=== PATIENT | female | born 1950 | race Caucasian/White ===

== ENCOUNTER 2016-10-13 14:24 | Outpatient (CLI) | payer MEDICARE | END 2016-10-13 23:59 | disposition home or self-care (01) | LOC: WOU 14:24 | PROVIDERS: ATTEND Podiatrist Foot & Ankle Surgery | DX: S91.101A Unspecified open wound of right great toe without damage to nail, initial encounter (principal); X58.XXXA Exposure to other specified factors, initial encounter; Y93.E8 Activity, other personal hygiene; Y92.89 Other specified places as the place of occurrence of the external cause; L60.0 Ingrowing nail; S91.012A Laceration without foreign body, left ankle, initial encounter | CPT/HCPCS: 11730; A6402 ==

== ENCOUNTER 2016-12-16 10:10 | Outpatient (CLI) | payer MEDICARE | END 2016-12-16 23:59 | disposition home or self-care (01) | DX: M65.871 Other synovitis and tenosynovitis, right ankle and foot (principal); S90.111A Contusion of right great toe without damage to nail, initial encounter; W22.8XXA Striking against or struck by other objects, initial encounter; Y92.89 Other specified places as the place of occurrence of the external cause; K21.9 Gastro-esophageal reflux disease without esophagitis; Z88.6 Allergy status to analgesic agent; Z88.8 Allergy status to other drugs, medicaments and biological substances; R60.0 Localized edema ==

== ENCOUNTER 2016-12-21 11:27 | Outpatient (CLI) | payer MEDICARE | END 2016-12-21 23:59 | disposition home or self-care (01) | LOC: RAD 11:27 | PROVIDERS: ATTEND Podiatrist Foot & Ankle Surgery | DX: M19.071 Primary osteoarthritis, right ankle and foot (principal) | CPT/HCPCS: 73630-TC ==

== ENCOUNTER 2016-12-29 11:00 | Outpatient (CLI) | payer MEDICARE | END 2016-12-29 23:59 | disposition home or self-care (01) | LOC: WOU 11:00 | PROVIDERS: ATTEND Podiatrist Foot & Ankle Surgery | DX: M19.071 Primary osteoarthritis, right ankle and foot (principal); R60.0 Localized edema; R23.4 Changes in skin texture; N31.9 Neuromuscular dysfunction of bladder, unspecified; Z88.6 Allergy status to analgesic agent; Z88.2 Allergy status to sulfonamides; Z87.440 Personal history of urinary (tract) infections | CPT/HCPCS: A6197; G0463 ==

== ENCOUNTER 2017-03-05 12:20 | Outpatient (CLI) | payer MEDICARE ==
[2017-03-05] MEDS ORDERED: ETHYL CHLORIDE SPRAY 1 EA BOTTLE TP ONE (14:00)
[2017-03-05] MEDS ORDERED: DEXAMETHASONE SOD PHOSPHATE 4 MG/ML VIAL ONE (14:00)
[2017-03-05] MEDS ORDERED: DEXAMETHASONE SOD PHOSPHATE 4 MG/ML VIAL IV SCH (14:00)
== END 2017-03-05 23:59 | disposition home or self-care (01) ==
LOC: WOU 12:20
PROVIDERS: ATTEND Podiatrist Foot & Ankle Surgery
PROC: 3E0U33Z Introduction of Anti-inflammatory into Joints, Percutaneous Approach (ICD-10-PCS; principal; 2017-03-05)
PROC: 3E0U3NZ Introduction of Analgesics, Hypnotics, Sedatives into Joints, Percutaneous Approach (ICD-10-PCS; principal; 2017-03-05)
DX: M65.872 Other synovitis and tenosynovitis, left ankle and foot (principal); M25.562 Pain in left knee; M25.511 Pain in right shoulder; S93.402D Sprain of unspecified ligament of left ankle, subsequent encounter; X58.XXXD Exposure to other specified factors, subsequent encounter
CPT/HCPCS: 20600; 20605; A6402; J1100; J3490

== ENCOUNTER 2018-10-26 14:45 | Outpatient (CLI) | payer MEDICARE ==
[2018-10-26] MEDS ORDERED: DEXAMETHASONE SOD PHOSPHATE 4 MG/ML VIAL IJ ONE (15:30)
[2018-10-26] MEDS ORDERED: ETHYL CHLORIDE SPRAY 1 EA BOTTLE TP ONE (15:30)
== END 2018-10-26 23:59 | disposition home or self-care (01) ==
LOC: WOU 14:45
PROVIDERS: ATTEND Podiatrist Foot & Ankle Surgery
DX: M72.2 Plantar fascial fibromatosis (principal); G57.52 Tarsal tunnel syndrome, left lower limb; G89.4 Chronic pain syndrome; Z88.2 Allergy status to sulfonamides; Z88.8 Allergy status to other drugs, medicaments and biological substances
CPT/HCPCS: 20550; J1100; J3490

== ENCOUNTER 2018-11-02 14:20 | Outpatient (CLI) | payer MEDICARE ==
[2018-11-02] MEDS ORDERED: ETHYL CHLORIDE SPRAY 1 EA BOTTLE TP ONE (15:30)
[2018-11-02] MEDS ORDERED: DEXAMETHASONE SOD PHOSPHATE 4 MG/ML VIAL IJ ONE (15:30)
== END 2018-11-02 23:59 | disposition home or self-care (01) ==
LOC: WOU 14:20
PROVIDERS: ATTEND Podiatrist Foot & Ankle Surgery
DX: M65.872 Other synovitis and tenosynovitis, left ankle and foot (principal); G57.52 Tarsal tunnel syndrome, left lower limb; R60.0 Localized edema; G89.29 Other chronic pain
CPT/HCPCS: 20550; 82962; J1100

== ENCOUNTER 2019-01-02 23:42 | Emergency (ER) | payer MEDICARE ==
[~2019-01-02] VITALS: Ht 149.9 cm; Wt 68.9 kg
--- NOTE | 2019-01-02 23:48 | NUR ---
PT [id number] FROM HOME FOR L LEG/CALF PAIN X4DAYS. PT WAS SEEN 2 DAYS AGO AT [facility] FOR SAME L LEG PAIN. PT TOOK NORCO 10 AND FENTANYL 50MG DIRECTOR OF CATH LAB. PT ON MONITOR IN BED 3. WILL CONTINUE TO MONITOR.
[2019-01-03] MEDS ORDERED: HYDROMORPHONE INJ 2 MG/ML DISP.SYRIN IV ONE
[2019-01-03] MEDS ORDERED: IV NS 0.9% 500 ML BAG IV ONE
[2019-01-03 00:26] LABS: BASOPHILS % (AUTO) 0.9 % (0.0-2.0); EOSINOPHILS % (AUTO) 0.3 % (0.0-6.0); HEMATOCRIT 49 % (33-45); HEMOGLOBIN 16.6 g/dL (11.5-14.8); LYMPHOCYTES # (AUTO) 1.9 /CMM (0.8-4.8); LYMPHOCYTES % (AUTO) 33.8 % (20.0-44.0); MEAN CORPUSCULAR HGB CONC 34 g/dl (31.0-36.0); MEAN CORPUSCULAR VOLUME 92 fL (82-100); MONOCYTES # (AUTO) 0.5 /CMM (0.1-1.30); NEUTROPHILS # (AUTO) 3.1 /CMM (1.8-8.9); PLATELET COUNT (AUTO) 213 /CMM (150-450); RED BLOOD CELL COUNT(AUTO) 5.33 MIL/uL (4.0-5.2); WHITE BLOOD COUNT (AUTO) 5.6 K/uL (4.3-11.0)
[2019-01-03] MEDS ORDERED: HYDROMORPHONE 1 MG/1 ML DISP.SYRIN ONE (00:40)
[2019-01-03 00:43] LABS: CALCIUM, SERUM 9.7 mg/dL (8.5-10.1); CREATININE 0.8 mg/dL (0.6-1.3)
[2019-01-03 02:47] VITALS: BP 118/69
--- NOTE | 2019-01-03 02:54 | NUR ---
Patient is resting comfortably in bed with BROTHER AT BEDSIDE. VSS. PT IN PAIN AND REQUESTING MORE PAIN MEDICATION. MD NOTIFIED.
[2019-01-03] MEDS ORDERED: LORAZEPAM 1 MG TABLET ONE (02:55)
[2019-01-03] MEDS ORDERED: HYDROCODONE/APAP 10/325MG 1 EA TABLET ONE (02:55)
[2019-01-03] MEDS ORDERED: LORAZEPAM 1 MG TABLET PO ONE (03:00)
[2019-01-03] MEDS ORDERED: HYDROCODONE/APAP 10/325MG 1 EA TABLET PO ONE (03:00)
--- NOTE | 2019-01-03 03:13 | NUR ---
IV removed. Catheter intact and site benign. Pressure and 4x4 applied to site. No bleeding noted.
--- NOTE | 2019-01-03 03:27 | NUR ---
[facility] ETA [id number] TRIP #[id number]
--- NOTE | 2019-01-03 04:32 | NUR ---
Patient discharged to home in stable condition. Written and verbal after care instructions given. Patient verbalizes understanding of instruction. PT PICKED UP BY [facility].
== END 2019-01-03 04:35 | disposition home or self-care (01) ==
LOC: ER 23:44
DX: G89.29 Other chronic pain (principal); R06.02 Shortness of breath; R11.0 Nausea; F32.9 Major depressive disorder, single episode, unspecified; G25.81 Restless legs syndrome; Z93.2 Ileostomy status; Z93.3 Colostomy status; Z98.890 Other specified postprocedural states; Z88.1 Allergy status to other antibiotic agents; Z88.6 Allergy status to analgesic agent; Z88.2 Allergy status to sulfonamides
CPT/HCPCS: 36415; 73590; 80048; 85025; 96374; 99284; J1170; J7040

== ENCOUNTER 2019-02-26 19:55 | Inpatient (IN) | payer MEDICARE ==
[~2019-02-26] VITALS: Ht 144.8 cm; Wt 63.0 kg
--- NOTE | 2019-02-26 23:05 | NUR ---
GPS FORENSIC BALLISTICS EXPERT NOTE: ADMITTED THIS 69-Y/O, FEMALE, FROM [facility], ARRIVED ON THIS UNIT AT 2305 VIA GURNEY WITH 2 EMT'S FROM AMBULANCE. PATIENT ADMITTED ON 5150 HOLD FOR GD AND DTS. PER HOLD PT. IS DEPRESSED AND EXPRESSES THOUGHTS OF NOT WANTING TO LIVE ANYMORE. PT. NOT SHOWING EATING AND SLEEPING, HX OF RECENT FALLS. PT. SOBBING AND UNABLE TO MANAGE DAILY LIFE DUE TO DEPRESSION. UPON FACE TO FACE ASSESSMENT, PATIENT IS A&O X3, AWAKE, ON RA 95 %, LAYING IN BED, NO ACUTE DISTRESS NOTED. BREATHING IS UNLABORED WITH EQUAL RISE & FALL OF THE CHEST. PT. IS NOTED TO BEING DEPRESSED, QUIET, SAD, FLAT AFFECT, ISOLATIVE. NO SI/HI/AVH VERBALIZED AT THIS TIME. SKIN ASSESSMENT DONE, PICTURES TAKEN & PLACED IN THE CHART. PT. REFUSED ACCU CHECK, PT. STATED," I AM EXHAUSTED." ALSO PATIENT IS UNABLE TO SIGN ADMISSION CONSENT FORMS DUE TO RIGHT ARM WEAKNESS. PT'S RIGHTS HANDBOOK & PT. GUIDELINES BOOK GIVEN & DISCUSSED TO THE PATIENT. PT BELONGINGS WERE INVENTORIED & CHECKED FOR CONTRABAND. PT. IS UNDER THE PSYCHIATRIC CARE OF DR. TORRES, ORDERS OBTAINED & UNDER THE MEDICAL CARE OF DR. COHN. PT. EDUCATED TO THE USE OF CALL LINDSAY. BED ALARM ON. ENVIRONMENTAL SAFETY CHECK DONE. BED LOCKED & IN LOW POSITION. WILL CONTINUE TO MONITOR Q15 MINUTES FOR SAFETY & BEHAVIOR.
[2019-02-26 23:20] VITALS: BP 107/68
[2019-02-27] MEDS ORDERED: MAGNESIUM HYDROXIDE 30 ML UDC PO PRN (00:30)
[2019-02-27] MEDS ORDERED: BLOOD SUGAR DIAGNOSTIC 1 EACH STRIP IN ONE (00:30)
[2019-02-27] MEDS ORDERED: MAG HYDROX/AL HYDROX/SIMETH 30 ML UDC PO PRN (00:30)
[2019-02-27] MEDS ORDERED: ACETAMINOPHEN 325 MG TABLET PO PRN (00:30)
[2019-02-27] MEDS ORDERED: TRAZ-214 PO (01:43)
[2019-02-27] MEDS ORDERED: DIAZ10TA4 PO (01:43)
[2019-02-27] MEDS ORDERED: RABE20TA18 PO (01:43)
[2019-02-27] MEDS ORDERED: TURM500C9 PO (01:43)
[2019-02-27] MEDS ORDERED: OXYC-133 PO (01:43)
[2019-02-27] MEDS ORDERED: ATOR20TA PO (01:43)
[2019-02-27] MEDS ORDERED: FENTANYL TOP (01:43)
[2019-02-27] MEDS ORDERED: [UNRECOGNIZED DRUG - OTHER] PO (01:43)
[2019-02-27] MEDS ORDERED: FENO160T PO (01:43)
[2019-02-27] MEDS ORDERED: LEVO50TA8 PO (01:43)
[2019-02-27] MEDS ORDERED: BACL10TA PO (01:43)
[2019-02-27] MEDS: LORAZEPAM 1 MG TABLET PO PRN ×2 (03:40→17:23)
--- NOTE | 2019-02-27 06:30 | NUR ---
GPS-RN CALLED EPIC GROUP SPOKE WITH DR. SUKI VAZQUEZ RECON TO BE DONE BY MORNING ROUNDING DOCTOR. 06:15- LEFT VOICE MESSAGE TO ANNELIESE VERA REGARDING PT'S ADMISSION. WILL ENDORSE TO THE NEXT SHIFT FOR CONTINUITY OF CARE.
--- NOTE | 2019-02-27 06:36 | NUR ---
GPS-RN PATIENT REFUSED TO HAVE HER COLOSTOMY/STOMA SITE TO TAKE A PICTURE. PATIENT REQUESTED TO HAVE IT DONE AFTER SHOWER. WILL ENDORSE TO THE DAY SHIFT NURSE.
[2019-02-27 08:00] VITALS: BP 105/62
[2019-02-27] MEDS: LEVOTHYROXINE SODIUM 50 MCG TABLET PO SCH (08:25)
[2019-02-27] MEDS: PANTOPRAZOLE 40 MG TABLET.DR PO SCH (08:25)
[2019-02-27] MEDS: ATORVASTATIN 10 MG TABLET PO SCH (08:25)
[2019-02-27] MEDS: oxyCODONE/APAP (5/325 MG) 1 UDTAB TABLET PO PRN (08:26)
[2019-02-27] MEDS ORDERED: TURMERIC ROOT EXTRACT 1000 MG PO SCH (09:00)
[2019-02-27] MEDS ORDERED: LEVOMEFOLATE PO SCH (09:00)
[2019-02-27] MEDS ORDERED: RABEPRAZOLE SODIUM 40 MG PO SCH (09:00)
--- NOTE | 2019-02-27 15:14 | NUR ---
RN NOTE- DR PATEL PAGED REGARDING PTS FENTANYL 50 MCG PATCH AND ILEOSTOMY SELF CARE. PT HAS DONE HER OWN ILEOSTOMY CATH AND CARE FOR OVER FIFTEEN YEARS AND HAS SUPPLIES IN HER PT LOCKER. DR PATEL ORDERED FENTANYL 50 MCG FENTANAL PATCH Q72 HRS AND ILEOSTOMY CARE PRN .
--- NOTE | 2019-02-27 15:25 | NUR ---
RN NOTE- ABOVE ORDERS FOR ILEOSTOMY CARE REQUIRE BLOOMING MILL SUPERVISOR TO BE PRESENT.
--- NOTE | 2019-02-27 15:48 | NUR ---
SS GROUP NOTE: SW met with pt. at bedside to invite them to attend today's support group at 2:00pm regarding regarding recognizing positive aspects in their life what. Patient was lethargic and refused stating, "I'm tired, need sleep". SW encouraged patient to attend later but respected patient's self-determination.
[2019-02-27 16:00] VITALS: BP 100/55
--- NOTE | 2019-02-27 17:24 | NUR ---
RN NOTE- PT WITH CRYING AND ANXIOUSNESS. ATIVAN PRN GIVEN
[2019-02-27 20:55] VITALS: BP 111/70
[2019-02-27] MEDS: SERTRALINE HCL 50 MG TABLET PO SCH (21:12)
[2019-02-27] MEDS: TRAZODONE 50 MG TABLET PO SCH (21:13)
[2019-02-28] MEDS: LORAZEPAM 1 MG TABLET PO PRN ×2 (02:51→11:50)
[2019-02-28 07:09] LABS: BASOPHILS % (AUTO) 0.4 % (0.0-2.0); EOSINOPHILS % (AUTO) 1.2 % (0.0-6.0); HEMATOCRIT 36 % (33-45); HEMOGLOBIN 12.2 g/dL (11.5-14.8); LYMPHOCYTES # (AUTO) 1.7 /CMM (0.8-4.8); MEAN CORPUSCULAR HGB CONC 34 g/dl (31.0-36.0); MEAN CORPUSCULAR VOLUME 92 fL (82-100); MONOCYTES # (AUTO) 0.3 /CMM (0.1-1.30); MONOCYTES % (AUTO) 9.3 % (2.0-12.0); NEUTROPHILS # (AUTO) 1.4 /CMM (1.8-8.9); NEUTROPHILS % (AUTO) 41.1 % (43.0-81.0); PLATELET COUNT (AUTO) 176 /CMM (150-450); RED BLOOD CELL COUNT(AUTO) 3.87 MIL/uL (4.0-5.2); WHITE BLOOD COUNT (AUTO) 3.5 K/uL (4.3-11.0)
[2019-02-28 07:18] LABS: ALBUMIN 2.9 g/dL (3.4-5.0); BILIRUBIN,TOTAL 0.7 mg/dL (0.2-1.0); CALCIUM, SERUM 9.1 mg/dL (8.5-10.1); CREATININE 0.9 mg/dL (0.6-1.3); POTASSIUM 3.3 mmol/L (3.5-5.1)
[2019-02-28 07:19] LABS: CHOLESTEROL 127 mg/dL (<200); HDL CHOLESTEROL 40 mg/dL (40-60); LDL 62 mg/dL (0-99); TRIGLYCERIDES 152 mg/dL (30-150)
[2019-02-28 08:00] VITALS: BP 107/62
[2019-02-28] MEDS: Fenofibrate 160 MG PO SCH (08:45)
[2019-02-28] MEDS: LEVOTHYROXINE SODIUM 50 MCG TABLET PO SCH (08:45)
[2019-02-28] MEDS: PANTOPRAZOLE 40 MG TABLET.DR PO SCH (08:45)
[2019-02-28] MEDS: ATORVASTATIN 10 MG TABLET PO SCH (08:45)
[2019-02-28] MEDS: SERTRALINE HCL 50 MG TABLET PO SCH (08:45)
[2019-02-28] MEDS ORDERED: POTASSIUM CHLORIDE 20 MEQ TAB.PRT.SR PO ONE (09:30)
[2019-02-28] MEDS: FENTANYL TD PATCH (50 MCG/HR) 50 MCG/HR PATCH.TD72 TD SCH (10:05)
--- NOTE | 2019-02-28 13:03 | NUR ---
FAMILY CONTACT: SW contacted pts brother Young [phone] and left a voicemail for callback.
--- NOTE | 2019-02-28 13:03 | NUR ---
INITIAL DISCHARGE PLAN: Patient wishes to return back home [id number] [facility] [id number] . SW will help form a safe and proper discharge plan in collaboration with .
--- NOTE | 2019-02-28 15:42 | NUR ---
FAMILY CONTACT: SW received a call from pts brother Young [phone] who was requesting medical information, SW explained that discussing medical information was out of her scope of practice and transferred the call to pts nurse.
[2019-02-28 16:00] VITALS: BP 100/57
[2019-02-28 20:00] VITALS: BP_SYST 108; BP_SYST 120; BP_DIAS 56; BP_DIAS 90
[2019-02-28 20:14] VITALS: BP 120/61
--- NOTE | 2019-02-28 20:27 | NUR ---
GPS/RN NOTE: PATIENT MOVED FROM ROOM 21-B TO 217. PATIENT IS ON CONTACT ISOLATION FOR MRSA.
[2019-02-28] MEDS: MUPIROCIN OINT 2% 22 GM TUBE SCH (20:40)
[2019-02-28 21:04] VITALS: BP 108/56
[2019-02-28] MEDS: TRAZODONE 50 MG TABLET PO SCH (21:34)
[2019-02-28] MEDS: TEMAZEPAM 15 MG CAPSULE PO PRN (21:37)
--- NOTE | 2019-02-28 21:38 | NUR ---
GPS/RN NOTE: TEMAZEPAM 15 MG CAP PO GIVEN, C/O INSOMNIA.
--- NOTE | 2019-03-01 03:32 | NUR ---
GPS/RN NOTE: CT HEAD RESULT: THERE IS NO EVIDENCE OF INTRACRANIAL PATHOLOGY. ATROPHY.
--- NOTE | 2019-03-01 06:34 | NUR ---
GPS/RN NOTE: END OF SHIFT NOTE: SLEPT FOR 8 HOURS DURING THE NIGHT, NO ACUTE DISTRESS NOTED. CONTINUE ISOLATION FOR MRSA NARES, ON BACTROBAN OINTMENT. NEEDY, ANXIOUS, MED COMPLIANT, COOPERATIVE.
[2019-03-01 08:00] VITALS: BP 112/71
[2019-03-01] MEDS: MUPIROCIN OINT 2% 22 GM TUBE SCH ×2 (08:46→20:58)
[2019-03-01] MEDS: Fenofibrate 160 MG PO SCH (08:46)
[2019-03-01] MEDS: LEVOTHYROXINE SODIUM 50 MCG TABLET PO SCH (08:46)
[2019-03-01] MEDS: PANTOPRAZOLE 40 MG TABLET.DR PO SCH (08:46)
[2019-03-01] MEDS: SERTRALINE HCL 50 MG TABLET PO SCH (08:47)
[2019-03-01] MEDS: ATORVASTATIN 10 MG TABLET PO SCH (08:47)
[2019-03-01] MEDS: LORAZEPAM 1 MG TABLET PO PRN (09:07)
--- NOTE | 2019-03-01 13:00 | NUR ---
OUTSIDE PSYCHIATRIST CONTACT: SW received a call from pts psychiatrist Dr. Brent Shah Address: [address] [place] [phone] who stated that pt needs continued inpatient psych treatment and also informed SW that pt is gravely disabled and unable to care for herself at home. Per Dr. Shah he stated that pt has not been eating or sleeping or taking medication in the past weeks and was refusing treatment. Dr. Shah stated that once pt is stable for discharge that he wishes for SW to call him to schedule a follow up appointment.
--- NOTE | 2019-03-01 14:00 | NUR ---
FAMILY CONTACT: GEMMA received a call from pts brother/PAOLO Young [phone] who requested information regarding pts discharge plan. GEMMA informed him that pt has been placed on a 14 day hold and that discharged orders have not been placed by psychiatrist. Brother stated that pt has been trying to manipulate her way out of her psych hold but stated that pt is very ill and needs help. Brother stated that pt may need SNF placement as she is unable to care for herself at home and also stated that pt is a "liar" and should not be trusted. GEMMA will continue working with pts brother and to ensure a safe and proper discharge plan.
[2019-03-01 16:00] VITALS: BP 121/65
[2019-03-01 20:00] VITALS: BP 107/61
[2019-03-01] MEDS: TRAZODONE 50 MG TABLET PO SCH (21:00)
[2019-03-01 21:51] VITALS: BP 107/61
[2019-03-02 08:00] VITALS: BP 115/85
[2019-03-02] MEDS: ATORVASTATIN 10 MG TABLET PO SCH (09:06)
[2019-03-02] MEDS: SERTRALINE HCL 50 MG TABLET PO SCH (09:06)
[2019-03-02] MEDS: PANTOPRAZOLE 40 MG TABLET.DR PO SCH (09:06)
[2019-03-02] MEDS: LEVOTHYROXINE SODIUM 50 MCG TABLET PO SCH (09:06)
[2019-03-02] MEDS: Fenofibrate 160 MG PO SCH (09:09)
[2019-03-02] MEDS: MUPIROCIN OINT 2% 22 GM TUBE SCH ×2 (09:10→20:59)
[2019-03-02] MEDS: LORAZEPAM 1 MG TABLET PO PRN (11:33)
[2019-03-02 16:00] VITALS: BP 125/75
--- NOTE | 2019-03-02 18:00 | NUR ---
ms rn patient stays inside room most of the time, though compliant to her meds, patien encourage to participate in group activity.
[2019-03-02 19:49] LABS: APPEARANCE,URINE SL CLOUDY (CLEAR); BILIRUBIN,URINE NEGATIVE (NEGATIVE); BLOOD, URINE NEGATIVE Ery/uL (NEGATIVE); COLOR,URINE YELLOW (YELLOW); KETONES,URINE NEGATIVE (NEGATIVE); LEUKOCYTE ESTERASE ,URINE SMALL (NEGATIVE); NITRITE, URINE NEGATIVE (NEGATIVE); PROTEIN,URINE NEGATIVE (NEGATIVE); UGLUCOSE NEGATIVE (NEGATIVE); UROBILINOGEN,URINE 0.2 EU/dL (0.2)
[2019-03-02 20:48] VITALS: BP 101/46
[2019-03-02] MEDS: TRAZODONE 50 MG TABLET PO SCH (21:12)
[2019-03-02] MEDS: TEMAZEPAM 15 MG CAPSULE PO PRN (22:39)
[2019-03-02 23:04] VITALS: BP 105/66
[2019-03-03 08:00] VITALS: BP 100/55
[2019-03-03] MEDS: ATORVASTATIN 10 MG TABLET PO SCH (08:21)
[2019-03-03] MEDS: SERTRALINE HCL 50 MG TABLET PO SCH (08:21)
[2019-03-03] MEDS: PANTOPRAZOLE 40 MG TABLET.DR PO SCH (08:21)
[2019-03-03] MEDS: LEVOTHYROXINE SODIUM 50 MCG TABLET PO SCH (08:21)
[2019-03-03] MEDS: Fenofibrate 160 MG PO SCH (09:58)
[2019-03-03] MEDS: MUPIROCIN OINT 2% 22 GM TUBE SCH ×2 (09:58→21:43)
[2019-03-03] MEDS: FENTANYL TD PATCH (50 MCG/HR) 50 MCG/HR PATCH.TD72 TD SCH (10:17)
[2019-03-03] MEDS: oxyCODONE/APAP (5/325 MG) 1 UDTAB TABLET PO PRN ×2 (11:50→21:41)
[2019-03-03 16:00] VITALS: BP 114/66
--- NOTE | 2019-03-03 17:25 | NUR ---
GPS RN NOTE ILEOSTOMY CARE COMPLETED TODAY
[2019-03-03] MEDS: POLYETHYLENE GLYCOL 3350 17 GM POWD.PACK PO SCH (18:27)
[2019-03-03 20:22] VITALS: BP 105/57
[2019-03-03] MEDS: TRAZODONE 50 MG TABLET PO SCH (21:42)
[2019-03-03] MEDS: LORAZEPAM 1 MG TABLET PO PRN (21:53)
--- NOTE | 2019-03-03 21:58 | NUR ---
GPS RN NOTE: PATIENT REFUSED TRAZODONE 100MG, EXPLAINED THE RISK AND BENEFITS X 3 ATTEMPTS, PATIENT STATED THAT THERE IS A SIDE EFFECT ON HER THAT SHE CAN'T REMEMBER WHEN SHE TAKES TRAZODONE MORE THAN 50 MG THAT IS WHY SHE IS REFUSING IT. WILL CONTINUE TO MONITOR Q15 MINS FOR SAFETY
[2019-03-03] MEDS: TEMAZEPAM 15 MG CAPSULE PO PRN (23:01)
[2019-03-04] MEDS: oxyCODONE/APAP (5/325 MG) 1 UDTAB TABLET PO PRN ×2 (04:15→11:46)
[2019-03-04 08:00] VITALS: BP 110/63
--- NOTE | 2019-03-04 08:32 | NUR ---
opening pt walking around c/o of not feeling well with symptoms of diarrhea and states that she thinks her ileostomy iis infected further stating she is not feeling well.. paged and spoke with LAKEISHA Vernon orders written and she come to exam pt later pt informed of plan of care.
[2019-03-04] MEDS: Fenofibrate 160 MG PO SCH ×2 (09:00→19:15)
[2019-03-04 09:06] LABS: BASOPHILS % (AUTO) 0.6 % (0.0-2.0); EOSINOPHILS % (AUTO) 0.6 % (0.0-6.0); HEMATOCRIT 40 % (33-45); HEMOGLOBIN 13.4 g/dL (11.5-14.8); LYMPHOCYTES # (AUTO) 1.8 /CMM (0.8-4.8); LYMPHOCYTES % (AUTO) 31.3 % (20.0-44.0); MEAN CORPUSCULAR HGB CONC 34 g/dl (31.0-36.0); MEAN CORPUSCULAR VOLUME 90 fL (82-100); MONOCYTES # (AUTO) 0.6 /CMM (0.1-1.30); MONOCYTES % (AUTO) 9.6 % (2.0-12.0); NEUTROPHILS # (AUTO) 3.4 /CMM (1.8-8.9); NEUTROPHILS % (AUTO) 57.9 % (43.0-81.0); PLATELET COUNT (AUTO) 188 /CMM (150-450); RED BLOOD CELL COUNT(AUTO) 4.41 MIL/uL (4.0-5.2); WHITE BLOOD COUNT (AUTO) 5.9 K/uL (4.3-11.0)
[2019-03-04 09:18] LABS: MAGNESIUM 1.7 mg/dL (1.8-2.4)
[2019-03-04 09:33] LABS: ALBUMIN 3.4 g/dL (3.4-5.0); BILIRUBIN,TOTAL 0.9 mg/dL (0.2-1.0); CALCIUM, SERUM 9.5 mg/dL (8.5-10.1); POTASSIUM 3.2 mmol/L (3.5-5.1); TOTAL PROTEIN, SERUM 6.6 g/dL (6.4-8.2)
[2019-03-04] MEDS: POLYETHYLENE GLYCOL 3350 17 GM POWD.PACK PO SCH (09:45)
[2019-03-04] MEDS: MUPIROCIN OINT 2% 22 GM TUBE SCH ×2 (09:46→21:30)
[2019-03-04] MEDS: PANTOPRAZOLE 40 MG TABLET.DR PO SCH (09:46)
[2019-03-04] MEDS: SERTRALINE HCL 50 MG TABLET PO SCH (09:46)
[2019-03-04] MEDS: ATORVASTATIN 10 MG TABLET PO SCH (09:46)
[2019-03-04] MEDS: LEVOTHYROXINE SODIUM 50 MCG TABLET PO SCH (09:46)
--- NOTE | 2019-03-04 10:20 | NUR ---
LABS ARE RESULTED CALLED WITH LAKEISHA WHALEN AND DURAN [id number].
[2019-03-04] MEDS ORDERED: POTASSIUM CHLORIDE 20 MEQ TAB.PRT.SR PO ONE (10:30)
--- NOTE | 2019-03-04 11:47 | NUR ---
IRRIGATED STOMA FOR SMALL BROWN STOOL FLUSHED AND COVERED WITH DRESSING BANDAGE. PT GIVEN PAIN MEDICATION AFTERWARD.
--- NOTE | 2019-03-04 14:21 | NUR ---
urine sent to lab for processing. brother brought pt medications-Librax and Genfobrein. medications taken to pharmacy and added to medication reconciliation list.
[2019-03-04] MEDS ORDERED: MAGNESIUM OXIDE 400 MG TABLET PO ONE (14:30)
[2019-03-04] MEDS ORDERED: CRAN200C5 PO (14:52)
[2019-03-04 16:00] VITALS: BP 115/71
[2019-03-04] MEDS: LIBRAX PO SCH (17:18)
--- NOTE | 2019-03-04 17:42 | NUR ---
CLOSING PT KEPT SAFE ALL MEDICATIONS GIVEN ABDOMINAL DISCOMFORT ADDRESSED AND MEDICATIONS GIVEN WILL ENDORSE CARE TO PM SHIFT FOR CONTINUITY OF CARE
[2019-03-04] MEDS ORDERED: MISCELLANEOUS MED 1 EA EA XX ONE (18:00)
[2019-03-04 20:36] VITALS: BP 102/56
[2019-03-04] MEDS ORDERED: CIPROFLOXACIN HCL 250 MG TABLET PO SCH (21:00)
[2019-03-04] MEDS ORDERED: CIPROFLOXACIN HCL 500 MG TABLET PO SCH (21:53)
[2019-03-04] MEDS: TRAZODONE 50 MG TABLET PO SCH (22:00)
[2019-03-04] MEDS ORDERED: CIPROFLOXACIN HCL 500 MG TABLET PO ONE (22:00)
[2019-03-04] MEDS: LORAZEPAM 1 MG TABLET PO PRN (22:07)
--- NOTE | 2019-03-04 22:41 | NUR ---
GPS RN NOTE: PATIENT REFUSED TRAZODONE, EXPLAINED THE RISK AND BENEFITS X 3 ATTEMPTS, PATIENT STILL REFUSED. WILL CONTINUE TO MONITOR Q15 MINS FOR SAFETY
[2019-03-04] MEDS: TEMAZEPAM 15 MG CAPSULE PO PRN (23:19)
[2019-03-05] MEDS: oxyCODONE/APAP (5/325 MG) 1 UDTAB TABLET PO PRN (00:23)
--- NOTE | 2019-03-05 02:21 | NUR ---
gps rn note: Patient still c/o cramping pain in her ileostomy site and requesting antonella, patient took prn pain medication and but per patient still not effective. Notified SANITARY CHEMIST Denis Dias, per Denis berman has an interaction with zoloft that patient was taking. Explained to the patient and patient agreed and applied hot compress on the painful site. Will continue to monitor q15 mins for safety
--- NOTE | 2019-03-05 03:00 | NUR ---
GPS RN NOTE: PATIENT ASLEEP IN BED, ARAUSABLE TO VERBAL AND TACTILE STIMULI, NO SOB, NO ACUTE DISTRESS, BREATHING EVEN AND UNLABORED, NO S/S OF PAIN AND DISCOMFORT, PRN MEDS AND HOT COMPRESS APPLICATIONS FOR PAIN EFFECTIVE. WILL CONTINUE TO MONITOR Q15 MINS FOR SAFETY
[2019-03-05 08:00] VITALS: BP 116/72
[2019-03-05] MEDS: POLYETHYLENE GLYCOL 3350 17 GM POWD.PACK PO SCH ×2 (08:19→08:32)
[2019-03-05] MEDS: CIPROFLOXACIN HCL 500 MG TABLET PO SCH ×2 (08:19→20:28)
[2019-03-05] MEDS: LEVOTHYROXINE SODIUM 50 MCG TABLET PO SCH (08:19)
[2019-03-05] MEDS: PANTOPRAZOLE 40 MG TABLET.DR PO SCH (08:19)
[2019-03-05] MEDS: ATORVASTATIN 10 MG TABLET PO SCH (08:19)
[2019-03-05] MEDS: SERTRALINE HCL 50 MG TABLET PO SCH (08:19)
[2019-03-05] MEDS: MUPIROCIN OINT 2% 22 GM TUBE SCH ×2 (08:21→21:43)
[2019-03-05] MEDS: LIBRAX PO SCH ×3 (09:00→16:58)
[2019-03-05] MEDS: Fenofibrate 160 MG PO SCH (09:00)
--- NOTE | 2019-03-05 10:22 | NUR ---
GPS RN NOTE: Called pharmacy asking about fenofibrate and librax not found in cassette. Neither available. Librax from home bottle in 2017.
[2019-03-05] MEDS: LORAZEPAM 1 MG TABLET PO PRN ×2 (10:44→21:48)
[2019-03-05] MEDS ORDERED: ONDANSETRON HCL 4 MG/5 ML SOLUTION PO PRN (11:00)
[2019-03-05 16:00] VITALS: BP 125/87
[2019-03-05 20:19] VITALS: BP 105/50
[2019-03-05] MEDS: ELLURA PO SCH (20:23)
[2019-03-05] MEDS: TRAZODONE 50 MG TABLET PO SCH (22:00)
[2019-03-05] MEDS: TEMAZEPAM 15 MG CAPSULE PO PRN (22:59)
--- NOTE | 2019-03-05 23:06 | NUR ---
PT REFUSED TRAZODONE 100MG ORDERED, BUT TOOK ALL OTHER MEDS INCLUDING SLEEPING MEDS. WILL CONTINUE TO MONITOR
[2019-03-06] MEDS: oxyCODONE/APAP (5/325 MG) 1 UDTAB TABLET PO PRN ×3 (02:18→14:28)
[2019-03-06] MEDS ORDERED: PANTOPRAZOLE 40 MG TABLET.DR PO SCH (07:30)
[2019-03-06 08:00] VITALS: BP 120/69
[2019-03-06] MEDS: PANTOPRAZOLE 40 MG TABLET.DR PO SCH (08:09)
[2019-03-06] MEDS: LEVOTHYROXINE SODIUM 50 MCG TABLET PO SCH (08:09)
[2019-03-06] MEDS: MUPIROCIN OINT 2% 22 GM TUBE SCH ×2 (08:41→21:02)
[2019-03-06] MEDS: Fenofibrate 160 MG PO SCH (08:42)
[2019-03-06] MEDS: CIPROFLOXACIN HCL 500 MG TABLET PO SCH ×2 (08:42→21:04)
[2019-03-06] MEDS: ELLURA PO SCH (08:43)
[2019-03-06] MEDS: SERTRALINE HCL 50 MG TABLET PO SCH (08:44)
[2019-03-06] MEDS: ATORVASTATIN 10 MG TABLET PO SCH (08:44)
[2019-03-06] MEDS: LIBRAX PO SCH ×3 (08:52→16:40)
[2019-03-06] MEDS: POLYETHYLENE GLYCOL 3350 17 GM POWD.PACK PO SCH (08:52)
--- NOTE | 2019-03-06 09:41 | NUR ---
FAMILY CONTACT: SW received a call from pts brother/DPOA Young [phone] who stated that he wishes to attend pts PC HEARING on this present day. SW informed him that he is able to attend if pt agrees with this attendance. Brother agreed and stated that he was on this way to the unit. SW will inform landcare officer and advocate of brothers desire to attend the hearing.
--- NOTE | 2019-03-06 10:10 | NUR ---
FAMILY CONTACT: GEMMA met with pts brother Young [phone] on the unit on this present day and he provided SW with evidence stating that pt is unable to care for herself at home. Brother wishes for pt to be discharged to a SNF as she is unable to meet her ADL's on her own. Brother is aware that pt will refuse SNF placement but stated that he will collaborate with GEMMA and to convince pt to go to a SNF. GEMMA will continue working with brother and to ensure a place and proper discharge.
[2019-03-06] MEDS ORDERED: KEY,NONCONTROL,TO KEEP IN PYXI 1 EA MC ONE (10:13)
[2019-03-06] MEDS: FENTANYL TD PATCH (50 MCG/HR) 50 MCG/HR PATCH.TD72 TD SCH (10:25)
[2019-03-06 11:18] LABS: BASOPHILS % (AUTO) 0.6 % (0.0-2.0); EOSINOPHILS % (AUTO) 0.2 % (0.0-6.0); HEMATOCRIT 41 % (33-45); HEMOGLOBIN 13.8 g/dL (11.5-14.8); LYMPHOCYTES # (AUTO) 1.5 /CMM (0.8-4.8); LYMPHOCYTES % (AUTO) 33.3 % (20.0-44.0); MEAN CORPUSCULAR HGB CONC 34 g/dl (31.0-36.0); MEAN CORPUSCULAR VOLUME 91 fL (82-100); MONOCYTES # (AUTO) 0.4 /CMM (0.1-1.30); MONOCYTES % (AUTO) 9.9 % (2.0-12.0); NEUTROPHILS # (AUTO) 2.5 /CMM (1.8-8.9); PLATELET COUNT (AUTO) 185 /CMM (150-450); RED BLOOD CELL COUNT(AUTO) 4.53 MIL/uL (4.0-5.2); WHITE BLOOD COUNT (AUTO) 4.4 K/uL (4.3-11.0)
[2019-03-06 11:25] LABS: CALCIUM, SERUM 9.9 mg/dL (8.5-10.1); CREATININE 0.9 mg/dL (0.6-1.3); POTASSIUM 4.2 mmol/L (3.5-5.1)
--- NOTE | 2019-03-06 11:48 | NUR ---
SNF REFERRAL: SW faxed SNF referral to [facility] Address: [address] [place] [address] and [facility] Address: [address] [place] [address] for review.
--- NOTE | 2019-03-06 13:34 | NUR ---
SNF: SW received a call from Holley, fire coordinator at [facility] Address: [address], [place] [address] stating pt has been accepted to the facility.
--- NOTE | 2019-03-06 15:50 | NUR ---
GROUP NOTE: Pt unable to participate in group due to having MRSA and being in isolation.
[2019-03-06 16:00] VITALS: BP 123/71
[2019-03-06] MEDS: LORAZEPAM 1 MG TABLET PO PRN (17:50)
--- NOTE | 2019-03-06 17:50 | NUR ---
RN NOTE: PT C/O INCREASED ANXIETY. MEDICATED WITH ATIVAN 1MG PO.
--- NOTE | 2019-03-06 19:27 | NUR ---
GPS/RN OPENING NOTES RECEIVED PATIENT IN BED, AWAKE, RESTING COMFORTABLY IN BED, CAN VERBALIZE NEEDS AND REPORTED WOULD LIKE TO TAKE MEDICATIONS AT A LATER TIME. RECEIVED REPORT FROM AM RN FOR SULTANA. PATIENT CT OF ABDOMEN DONE PER MD ORDER, ON ANTIBIOTIC PO THERAPY WILL MONITOR ANY CHANGES.
[2019-03-06 19:43] VITALS: BP 117/62
[2019-03-06 20:34] VITALS: BP 117/67
[2019-03-06] MEDS: TRAZODONE 50 MG TABLET PO SCH (21:04)
[2019-03-07] MEDS: LEVOTHYROXINE SODIUM 50 MCG TABLET PO SCH (07:44)
[2019-03-07] MEDS: PANTOPRAZOLE 40 MG TABLET.DR PO SCH (07:44)
[2019-03-07 08:00] VITALS: BP 97/64
[2019-03-07] MEDS: CIPROFLOXACIN HCL 500 MG TABLET PO SCH ×2 (08:45→21:17)
[2019-03-07] MEDS: MUPIROCIN OINT 2% 22 GM TUBE SCH ×2 (08:45→21:16)
[2019-03-07] MEDS: SERTRALINE HCL 50 MG TABLET PO SCH (08:45)
[2019-03-07] MEDS: ATORVASTATIN 10 MG TABLET PO SCH (08:46)
[2019-03-07] MEDS: ELLURA PO SCH (08:46)
[2019-03-07] MEDS: Fenofibrate 160 MG PO SCH (08:47)
[2019-03-07] MEDS: LIBRAX PO SCH ×3 (08:47→16:39)
[2019-03-07] MEDS: POLYETHYLENE GLYCOL 3350 17 GM POWD.PACK PO SCH (08:48)
--- NOTE | 2019-03-07 14:00 | NUR ---
RN NOTE: PT TOOK SHOWER WITH NICU RN. REPORTED LOSING FENTANYL 50 MCG PATCH WHILE IN THE SHOWER. BODY, CLOTHING AND TOWELS SEARCHED. UNABLE TO LOCATE FENTANYL PATCH JUAN SANCHEZ INSPECTOR PUBLICATIONS NOTIFIED.
[2019-03-07] MEDS: oxyCODONE/APAP (5/325 MG) 1 UDTAB TABLET PO PRN (14:52)
--- NOTE | 2019-03-07 14:53 | NUR ---
RN NOTE: PT C/O 11/12 UPPER ABDOMINAL PAIN AFTER SHOWER. MEDICATE WITH OXYCODONE PRN.
[2019-03-07 16:00] VITALS: BP 116/65
--- NOTE | 2019-03-07 16:22 | NUR ---
Group Note: SW encouraged pt to attend group therapy on 03/07/19 at 12pm discussing discharge planning but the pt is unable to participate in group at this time due the pt being on isolation for MRSA. GEMMA discussed with the pt that the recommendation is for the pt to be discharged to a SNF and the pt stated that she refuses that option and that she will return to her home.
--- NOTE | 2019-03-07 18:50 | NUR ---
RN NOTE: CALL TO JUAN SANCHEZ NP FOR ORDER FOR ONE TIME FENTANYL 50 MCG PATCH TO REPLACE LOST PATCH AND CIPRO 500MG BID FOR CHOLITIS.
[2019-03-07] MEDS ORDERED: FENTANYL TD PATCH (50 MCG/HR) 50 MCG/HR PATCH.TD72 TD SCH ×2 (19:00→20:00)
[2019-03-07] MEDS: LORAZEPAM 1 MG TABLET PO PRN (19:03)
--- NOTE | 2019-03-07 19:04 | NUR ---
RN NOTE: PT C/O INCREASE ANXIETY. MED WITH ATIVAN 1MG PO
[2019-03-07 20:02] VITALS: BP 113/64
[2019-03-07] MEDS ORDERED: CIPROFLOXACIN HCL 250 MG TABLET PO SCH (21:00)
[2019-03-07] MEDS: TRAZODONE 50 MG TABLET PO SCH (22:00)
[2019-03-07] MEDS: TEMAZEPAM 15 MG CAPSULE PO PRN (23:03)
[2019-03-08] MEDS: oxyCODONE/APAP (5/325 MG) 1 UDTAB TABLET PO PRN ×2 (01:31→10:48)
[2019-03-08] MEDS: PANTOPRAZOLE 40 MG TABLET.DR PO SCH (07:53)
[2019-03-08] MEDS: LEVOTHYROXINE SODIUM 50 MCG TABLET PO SCH (07:53)
[2019-03-08 08:00] VITALS: BP 102/70
--- NOTE | 2019-03-08 08:43 | NUR ---
FAMILY CONTACT: SW received a call from pts brother Young [phone] and discussed discharge to SNF. SW informed brother that pt will be discharged on 03/09/19 to [facility] ([facility]) [address] [place] [id number] . Brother agrees with discharge plan.
[2019-03-08] MEDS: LIBRAX PO SCH ×3 (09:00→16:05)
[2019-03-08] MEDS: ATORVASTATIN 10 MG TABLET PO SCH (09:02)
[2019-03-08] MEDS: POLYETHYLENE GLYCOL 3350 17 GM POWD.PACK PO SCH (09:02)
[2019-03-08] MEDS: CIPROFLOXACIN HCL 500 MG TABLET PO SCH ×2 (09:02→21:15)
[2019-03-08] MEDS: SERTRALINE HCL 50 MG TABLET PO SCH (09:02)
[2019-03-08] MEDS: MUPIROCIN OINT 2% 22 GM TUBE SCH ×2 (09:02→21:00)
[2019-03-08] MEDS: Fenofibrate 160 MG PO SCH (09:02)
[2019-03-08] MEDS: ELLURA PO SCH (09:03)
[2019-03-08] MEDS: LORAZEPAM 1 MG TABLET PO PRN (10:48)
--- NOTE | 2019-03-08 11:01 | NUR ---
INDIVIDUAL SESSION: GEMMA discussed pts discharge plan with pt on this present day. SW informed pt that she will be discharged tomorrow 03/09/19 to [facility] as she cannot be discharged home due to her inability to properly care for herself and unable to meet her ADL's. Pt denied and stated that she is able to care for herself and SW explained that the reason she was hospitalized was because she was not feeding herself, bathing, and taking medications. SW also explained that pts outside psychiatrist and brother have contacted SW to inform SW that pt is not able to care for herself and that her safety is at risk and needs SNF placement. SW explained that discharging pt home is not a safe discharge from the hospital. SW stated that she will coordinate pts discharge to a SNF for tomorrow via ambulance. Pt refused to continue speaking with SW and asked SW to leave the room.
--- NOTE | 2019-03-08 11:14 | NUR ---
OUTSIDE PSYCHIATRIST CONTACT: SW contacted pts psychiatrist Dr. Brent Shah Address: [address] [place] [phone] and left a voicemail informing him pt will be discharged 03/09/19 to [facility].
[2019-03-08 16:00] VITALS: BP 105/76
[2019-03-08 20:31] VITALS: BP 90/48
[2019-03-08] MEDS: NYSTATIN (PYXIS) 500,000 UNIT/5 ML ORAL.SUSP PO SCH (21:15)
[2019-03-08] MEDS: TRAZODONE 50 MG TABLET PO SCH (22:00)
[2019-03-09] MEDS: TEMAZEPAM 15 MG CAPSULE PO PRN (00:07)
[2019-03-09] MEDS: oxyCODONE/APAP (5/325 MG) 1 UDTAB TABLET PO PRN (06:37)
[2019-03-09 08:00] VITALS: BP 109/61
[2019-03-09] MEDS: POLYETHYLENE GLYCOL 3350 17 GM POWD.PACK PO SCH (08:44)
[2019-03-09] MEDS: Fenofibrate 160 MG PO SCH (08:45)
[2019-03-09] MEDS: PANTOPRAZOLE 40 MG TABLET.DR PO SCH (08:45)
[2019-03-09] MEDS: SERTRALINE HCL 50 MG TABLET PO SCH (08:45)
[2019-03-09] MEDS: LEVOTHYROXINE SODIUM 50 MCG TABLET PO SCH (08:45)
[2019-03-09] MEDS: NYSTATIN (PYXIS) 500,000 UNIT/5 ML ORAL.SUSP PO SCH ×2 (08:45→13:02)
[2019-03-09] MEDS: ATORVASTATIN 10 MG TABLET PO SCH (08:45)
[2019-03-09] MEDS: CIPROFLOXACIN HCL 500 MG TABLET PO SCH (08:46)
[2019-03-09] MEDS: MUPIROCIN OINT 2% 22 GM TUBE SCH (08:48)
[2019-03-09] MEDS: ELLURA PO SCH (08:49)
[2019-03-09] MEDS: LIBRAX PO SCH ×2 (09:00→13:00)
--- NOTE | 2019-03-09 10:33 | NUR ---
DISCHARGE NOTE: Pt will be discharged at 1:00pm via [facility] ([facility]) [address] [facility] [id number] . Pt's brother Young [phone] has been notified and agrees with discharge plan. Pts mood is labile with congruent affect. Pt denied suicidal/homicidal ideation and denied visual/auditory hallucinations. Pt will be under the care of Psychiatrist: Dr. Cortes Address: [address] [place] [address] and Gamemaster: Dr Evans Address: [address] [place] [address] . The multidisciplinary exit care form was done, printed, signed, and given to the patient.
--- NOTE | 2019-03-09 13:51 | NUR ---
DIRECTOR PRISON NOTE: PATIENT IS A 69 YEAR OLD FEMALE DISCHARGED TO [facility] ([facility]) [address] [facility] [address] . PATIENT IS IN STABLE CONDITION. VSS. NO ACUTE DISTRESS NOTED. NO COMPLAINTS. COMPLIANT WITH MEDICATION MANAGEMENT. COOPERATIVE WITH PLAN OF CARE. PSYCHIATRIC TREATMENT PLANS MET. MEDICAL TREATMENT PLANS DEFERRED FOR CONTINUAL MONITORING. DENIES SI/HI VAH AT THE TIME OF DISCHARGE. PATIENT REFUSED SKIN CHECK. EDUCATED PATIENT ABOUT AFTERCARE WITH COPY PROVIDED. RETURNED PERSONAL BELONGINGS TO PATIENT. MEDICATIONS RECONCILED WITH DR TORRES AND DANIEL, CRISTINE ALONG WITH PSYCHIATRIC DISCHARGE ORDERS. DISCHARGE PAPERWORK SIGNED. FOR FOLLOW UP WITH PSYCHIATRIST DR GARIBAY [address] [facility] [address] [address] RODRIGUEZ [address] [facility] [phone] WITHIN 1 WEEK. PATIENT LEFT THE [facility] VIA TRANSPORTATION AT 1330.
== END 2019-03-09 13:30 | DRG 885 ==
LOC: GPS 23:00
PROVIDERS: ADMIT Psychiatry & Neurology Psychiatry; ATTEND Hospitalist
DX: F33.9 Major depressive disorder, recurrent, unspecified (principal); R45.851 Suicidal ideations; E44.1 Mild protein-calorie malnutrition; F41.9 Anxiety disorder, unspecified; G89.29 Other chronic pain; M79.7 Fibromyalgia; N31.9 Neuromuscular dysfunction of bladder, unspecified; Z88.2 Allergy status to sulfonamides; E03.9 Hypothyroidism, unspecified; E78.5 Hyperlipidemia, unspecified; E87.6 Hypokalemia; R29.6 Repeated falls; E88.09 Other disorders of plasma-protein metabolism, not elsewhere classified; Z68.30 Body mass index [BMI] 30.0-30.9, adult
CPT/HCPCS: 36415; 70450-TC; 80048-TC; 80053-TC; 80061-TC; 81000-TC; 83735-TC; 84100-TC; 85025-TC; 87081-TC; 97116-TC; 97530-TC; Q0162

== ENCOUNTER 2019-09-23 10:17 | Inpatient (IN) | payer MEDICARE ==
[~2019-09-23] VITALS: Ht 165.1 cm; Wt 66.2 kg
[~2019-09-23 10:17] MED LIST: ATOR20TA PO; BACL10TA PO; CRAN200C5 PO; DIAZ10TA4 PO; FENO160T PO; FENTANYL TOP; LEVO50TA8 PO; OXYC-133 PO; RABE20TA18 PO; TRAZ-257 PO; TURM500C9 PO; [UNRECOGNIZED DRUG - OTHER] PO
--- NOTE | 2019-09-23 10:20 | NUR ---
PT BIBA RA 102 "neighbors called was found on the floor" PT IS AAOX3, NOT IN RESPIRATORY DISTRESS, HOOKED TO APPARATUS REPAIR MECHANIC, KEPT RESTED AND COMFORTABLE, WILL CONTINUE TO MONITOR.
--- NOTE | 2019-09-23 10:35 | NUR ---
PT SEEN AND EXAMINED BY .
--- NOTE | 2019-09-23 10:40 | NUR ---
IV LINE ESTABLISHED.
[2019-09-23] MEDS ORDERED: IV NS 0.9% 1,000 ML BAG IV ONE (11:00)
[2019-09-23 11:17] LABS: BASOPHILS % (AUTO) 0.3 % (0.0-2.0); EOSINOPHILS % (AUTO) 0.2 % (0.0-6.0); HEMATOCRIT 43 % (33-45); HEMOGLOBIN 13.8 g/dL (11.5-14.8); LYMPHOCYTES % (AUTO) 18.1 % (20.0-44.0); MEAN CORPUSCULAR HGB CONC 32 g/dl (31.0-36.0); MEAN CORPUSCULAR VOLUME 91 fL (82-100); MONOCYTES # (AUTO) 0.3 /CMM (0.1-1.30); MONOCYTES % (AUTO) 6.3 % (2.0-12.0); NEUTROPHILS % (AUTO) 75.1 % (43.0-81.0); PLATELET COUNT (AUTO) 151 /CMM (150-450); RED BLOOD CELL COUNT(AUTO) 4.75 MIL/uL (4.0-5.2); WHITE BLOOD COUNT (AUTO) 5.3 K/uL (4.3-11.0)
[2019-09-23 11:26] LABS: CALCIUM, SERUM 9.6 mg/dL (8.5-10.1); CARBON DIOXIDE 25 mmol/L (21-32); CHLORIDE 108 mmol/L (98-107); CREATININE 1.1 mg/dL (0.6-1.3); GLUCOSE 84 mg/dL (74-106); POTASSIUM 3.8 mmol/L (3.5-5.1); SODIUM SERUM 142 mmol/L (136-145); UREA NITROGEN, BLOOD 18 mg/dL (7-18)
--- NOTE | 2019-09-23 11:31 | NUR ---
CLAY ARTIST AT BEDSIDE FOR XRAY.
--- NOTE | 2019-09-23 11:35 | NUR ---
URINE SPECIMEN COLLECTED AND SENT TO LAB.
[2019-09-23] MEDS ORDERED: ESTR1PAT25 TD (11:44)
[2019-09-23] MEDS ORDERED: HYDR25TA4 PO (11:44)
[2019-09-23 11:45] LABS: APPEARANCE,URINE Clear (CLEAR); BILIRUBIN,URINE SMALL (NEGATIVE); BLOOD, URINE Trace-lysed Ery/uL (NEGATIVE); COLOR,URINE Yellow (YELLOW); KETONES,URINE Trace (NEGATIVE); LEUKOCYTE ESTERASE ,URINE Negative (NEGATIVE); NITRITE, URINE Negative (NEGATIVE); PROTEIN,URINE Negative (NEGATIVE); UGLUCOSE Negative (NEGATIVE); UROBILINOGEN,URINE 0.2 EU/dL (0.2)
[2019-09-23 11:54] LABS: BACTERIA,URINE Few /HPF (None Seen); SQUAMOUS EPITHELIAL CELL,UR Few /HPF (None Seen); WBC,URINE 0-2 /HPF (0-3)
--- NOTE | 2019-09-23 12:04 | NUR ---
MOVE SHEET SUBMITTED TO ADMITTING AND CALLED FOR TELE BED.
--- NOTE | 2019-09-23 12:33 | NUR ---
CALLED HOUSE SUP FOR TELE BED. NO BED AVAILABLE PER HOUSE SUP AND WILL CALL BACK.
[2019-09-23] MEDS ORDERED: BACLOFEN (10 MG) 10 MG TABLET PO SCH (13:00)
[2019-09-23] MEDS ORDERED: ONDANSETRON HCL/PF 4 MG/2 ML VIAL IVP PRN (13:00)
[2019-09-23] MEDS ORDERED: MAG HYDROX/AL HYDROX/SIMETH 30 ML UDC PO PRN (13:00)
[2019-09-23] MEDS ORDERED: Z GUARD REMEDY 2 OZ OINT TP PRN (13:00)
[2019-09-23] MEDS ORDERED: MECLIZINE HCL 12.5 MG TABLET PO PRN (13:00)
[2019-09-23] MEDS ORDERED: MAGNESIUM HYDROXIDE 30 ML UDC PO PRN (13:00)
[2019-09-23] MEDS ORDERED: DIAZEPAM 10 MG TABLET PO SCH ×2 (13:00→17:00)
[2019-09-23] MEDS ORDERED: ACETAMINOPHEN 325 MG TABLET PO PRN (13:00)
[2019-09-23] MEDS ORDERED: FENOFIBRATE NANOCRYS (145 MG) 145 MG TABLET PO SCH (13:00)
--- NOTE | 2019-09-23 13:05 | NUR ---
ROOM GIVEN [phone]
--- NOTE | 2019-09-23 13:08 | NUR ---
CALLED [facility] FOR REPORT RN NOT AVAILABLE, WILL CALL BACK IN 5 MINS.
--- NOTE | 2019-09-23 13:20 | NUR ---
REPORT GIVEN TO HARMONY FRANKLIN FOR SULTANA.
[2019-09-23] MEDS ORDERED: ESTRADIOL TD SCH ×2 (14:00→14:30)
--- NOTE | 2019-09-23 14:45 | NUR ---
pt. arrived here,hooked up to tele sr heart rate of 89.very anxious and alert.ist thing wanted to stand up at bedside.alert and oriented x4,extremely anxious.hep lock in place.verbalized concern over ileos. pouch.has own supplies at bedside.vs taken.
[2019-09-23 15:00] VITALS: BP 137/69
[2019-09-23] MEDS: DIAZEPAM 5 MG TABLET PO SCH (15:36)
[2019-09-23] MEDS ORDERED: TURMERIC ROOT EXTRACT 1000 MG PO SCH (17:00)
[2019-09-23] MEDS: BACLOFEN (10 MG) 10 MG TABLET PO SCH (17:07)
[2019-09-23] MEDS: HYDROCODONE/APAP 5/325MG 1 EACH TABLET PO PRN ×2 (17:08→17:09)
--- NOTE | 2019-09-23 18:00 | NUR ---
appears very needy with freq. requests.
--- NOTE | 2019-09-23 19:30 | NUR ---
CARGO SERVICE SUPERVISOR NOTES RECEIVED ON BED A/O X3,WITH EPISODE OF FORGETFULNESS,POSSIBLE SYNCOPAL EPISODE AT HOME.BREATHING REGULAR,NOT IN ANY FORM OF DISTRESS,SALINE LOCK RIGHT HAND INTACT AND PATENT.PATIENT VERBALIZED HAVING UROSTOMY PUMP INSIDE THAT SHE NEEDS HELP TO PRESS LOWER ABDOMEN,BLADDER AREA IN ORDER TO PEE,THAT SHE CATHETERIZED HERSELF TWICE A DAY.ASSIST WITH NEEDS.ALSO VERBALIZED THAT SHE HAS TRIGGERED LEFT MIDDLE FINGER AND LEFT THUMP AND SHE'S WEARING FINGER SPLINT ON BOTH.FALL RISK,BED ON LOWEST POSITION AND LOCKED,BED ALARM,CALL LIGHT IN REACH,NEEDS ANTICIPATED. Addendum: 09/23/19 at 8649 by JAYDEN DURÁN RN ABOVE PUMP NOT UROSTOMY,ITS A HUNT PUMP FOR BOWEL MOVEMENT,SAYS SHE DOESNT HAVE ANUS.
[2019-09-23 20:00] VITALS: BP 128/60
--- NOTE | 2019-09-23 20:00 | NUR ---
COMPANY ACCOUNTANT NOTES SR-95 ON TELE MONITOR
[2019-09-23] MEDS: TRAZODONE 50 MG TABLET PO SCH (22:00)
--- NOTE | 2019-09-23 22:30 | NUR ---
INTERNATIONAL MANAGER NOTES PATIENT SHE HAS HUNT PUMP INSIDE FOR BOWEL MOVEMENT,NEEDS TO FLUSH WITH TAP WATER 2000ML,MASSAGE TUMMY AND COME OUT BY ITSELF,TOOK OUT 2500 LIQUID OUTPUT(IRRIGANT 2000,500ML STOOL).
--- NOTE | 2019-09-23 23:00 | NUR ---
MS RN NOTES ACCU-CHECK PATIENT REQUEST BLOOD SUGAR CHECK BECAUSE SHE'S SWEATING EARLIER,IT WAS 91,SNACK AT BEDSIDE.
[2019-09-23] MEDS: oxyCODONE/APAP (5/325 MG) 1 UDTAB TABLET PO PRN (23:23)
[2019-09-24] VITALS (9 sets, daily range): BP systolic 113–139; BP diastolic 66–86
[2019-09-24] MEDS: ZOLPIDEM TARTRATE 5 MG TABLET PO PRN (01:11)
--- NOTE | 2019-09-24 01:11 | NUR ---
SALESPERSON MEATS NOTES C/O INSOMNIA,AMBIEN 5MG PO ORDERED.
--- NOTE | 2019-09-24 02:30 | NUR ---
STREET SWEEPER NOTES CALLING EVERY TEN MINUTES FOR SIMPLE THINGS.CHARGE NURSE SPOKE TO PATIENT.
--- NOTE | 2019-09-24 03:00 | NUR ---
PRODUCTION ENGINEER NOTES QUIET THIS TIME,TRYING TO GET A ASLEEP.
--- NOTE | 2019-09-24 04:45 | NUR ---
ELECTRICAL MECHANIC NOTES CALLED,WENT INSIDE HER ROOM,ATTENDS HER NEEDS,SPENT 20 MINUTES
--- NOTE | 2019-09-24 06:25 | NUR ---
SCREEN MAKING SUPERVISOR NOTES ON BED A/O X3,FORGETFUL,VERY NEEDY,SALINE LOCK LEFT HAND INTACT AND PATENT.ILEOSTOMY STOMA NOW COVERED WITH DRESSING,PT USE HER OWN DRESSING PAD AND SHE'S THE ONLY ONE CAN DO IT.ONLY NEEDS ASSISTANCE WHEN IRRIGATING HER HUNT POUCH ORDER TO HAVE BOWEL MOVEMENT.IN NO ACUTE DISTRESS.CALL LIGHT IN REACH,NEEDS ATTENDED.
[2019-09-24 06:27] LABS: BASOPHILS % (AUTO) 0.3 % (0.0-2.0); EOSINOPHILS % (AUTO) 0.8 % (0.0-6.0); HEMATOCRIT 37 % (33-45); HEMOGLOBIN 12.4 g/dL (11.5-14.8); LYMPHOCYTES # (AUTO) 1.8 /CMM (0.8-4.8); LYMPHOCYTES % (AUTO) 33.4 % (20.0-44.0); MEAN CORPUSCULAR HGB CONC 33 g/dl (31.0-36.0); MEAN CORPUSCULAR VOLUME 88 fL (82-100); MONOCYTES # (AUTO) 0.5 /CMM (0.1-1.30); NEUTROPHILS # (AUTO) 3.1 /CMM (1.8-8.9); NEUTROPHILS % (AUTO) 56.5 % (43.0-81.0); PLATELET COUNT (AUTO) 160 /CMM (150-450); RED BLOOD CELL COUNT(AUTO) 4.24 MIL/uL (4.0-5.2); WHITE BLOOD COUNT (AUTO) 5.4 K/uL (4.3-11.0)
[2019-09-24 06:43] LABS: MAGNESIUM 1.9 mg/dL (1.8-2.4); PHOSPHORUS 2.7 mg/dL (2.5-4.9); POTASSIUM 3.2 mmol/L (3.5-5.1)
[2019-09-24] MEDS ORDERED: POTASSIUM CHLORIDE 20 MEQ TAB.PRT.SR PO ONE (08:00)
--- NOTE | 2019-09-24 08:00 | NUR ---
RN NOTES RECEIVED PATIENT IN THE BED A/O X3 WITH SHORT MEMORY PROBLEM, KEEP REPEATING THAT HAS ALREADY BEEN SAID., UNKEMPT. SEEN HOSPITALIST Dr COHN , AND GET PSYCH CONSULTATION TO. PATIENT ANXIOUS, ASKING SOME MEDICATION. ADMINISTERED SCHEDULED MEDICATION PRESCRIBED. V/S STABLE. PATIENT AMBULATORY HAS HUNT POUCH, AND GOING BATHROOM. IV ACCESS ON RIGHT HAND INTACT. CALL LIGHT WITHIN TO REACH, CONTINUED MONITORING.
[2019-09-24] MEDS ORDERED: RABEPRAZOLE SODIUM 40 MG PO SCH (09:00)
[2019-09-24] MEDS ORDERED: LEVOMEFOLATE PO SCH (09:00)
[2019-09-24] MEDS: DIAZEPAM 5 MG TABLET PO SCH ×3 (09:09→17:33)
[2019-09-24] MEDS: HYDROCHLOROTHIAZIDE 25 MG TABLET PO SCH (09:09)
[2019-09-24] MEDS: FENOFIBRATE NANOCRYS (145 MG) 145 MG TABLET PO SCH (09:09)
[2019-09-24] MEDS: ATORVASTATIN 10 MG TABLET PO SCH (09:10)
[2019-09-24] MEDS: BACLOFEN (10 MG) 10 MG TABLET PO SCH ×3 (09:16→17:33)
[2019-09-24] MEDS: LEVOTHYROXINE SODIUM 50 MCG TABLET PO SCH (09:16)
--- NOTE | 2019-09-24 14:20 | NUR ---
rn notes collected UA/UC specimen by clean catch, called lab for lemon picker.
[2019-09-24 16:19] LABS: APPEARANCE,URINE CLEAR (CLEAR); BILIRUBIN,URINE NEGATIVE (NEGATIVE); BLOOD, URINE TRACE-INTA Ery/uL (NEGATIVE); COLOR,URINE YELLOW (YELLOW); KETONES,URINE NEGATIVE (NEGATIVE); LEUKOCYTE ESTERASE ,URINE NEGATIVE (NEGATIVE); NITRITE, URINE NEGATIVE (NEGATIVE); PH,URINE 7.5 (5.0-8.0); PROTEIN,URINE NEGATIVE (NEGATIVE); UGLUCOSE NEGATIVE (NEGATIVE); UROBILINOGEN,URINE 0.2 EU/dL (0.2)
[2019-09-24 16:33] LABS: BACTERIA,URINE None seen /HPF (None Seen); WBC,URINE 0-2 /HPF (0-3)
[2019-09-24] MEDS ORDERED: NAPHAZOLINE HCL/PHENIR MAL 15 ML BOTTLE EACHEYE PRN (18:00)
--- NOTE | 2019-09-24 18:00 | NUR ---
rn notes patient stable asking sleeping medication, educated patient unable to administer sleeping medication, waiting for psychiatrist consultation. administered scheduled medication, v/s stable, patient ambulatory, self care. endorsed oncoming nurse follow plan of care.
--- NOTE | 2019-09-24 19:30 | NUR ---
MS RN NOTES PATIENT IN BED, AWAKE, ALERT AND ORIENTED X 3. BREATHING EVEN AND UNLABORED ON ROOM AIR. SHOWS NO SIGNS OF ACUTE RESPIRATORY DISTRESS. NO ACUTE PAIN. TELE MONITOR SR. PT HAS HUNT POUCH, PT ABLE TO EMPTY. IV ON R HAND 22 SL. SHOWS NO SIGNS OF INFILTRATION, NO REDNESS. SAFETY PRECAUTIONS IN PLACE. BED IN LOWEST POSITION, LOCKED, AND CALL LIGHT KEPT WITHIN REACH. WILL CONTINUE TO MONITOR.
[2019-09-24] MEDS: TRAZODONE 50 MG TABLET PO SCH (22:00)
[2019-09-24] MEDS: HYDROCODONE/APAP 5/325MG 1 EACH TABLET PO PRN (22:26)
--- NOTE | 2019-09-24 22:26 | NUR ---
SUPERVISOR PATCHING NOTES PATIENT COMPLAINING OF PAIN. GIVEN PRN NORCO AT 2226, VITAL SIGNS STABLE. WILL CONTINUE TO MONITOR.
[2019-09-25] VITALS: BP 124/70
--- NOTE | 2019-09-25 01:00 | NUR ---
INVENTORY CONTROL ANALYST NOTES PT DISCUSSED THAT SHE DOES NOT WANT TO BE FULL CODE. WILL F/U WITH MD AND SON.
--- NOTE | 2019-09-25 01:51 | NUR ---
MS RN NOTES PATIENT IN BED, AWAKE, ALERT AND ORIENTED X 3. BREATHING EVEN AND UNLABORED ON ROOM AIR. SHOWS NO SIGNS OF ACUTE RESPIRATORY DISTRESS. NO ACUTE PAIN. TELE MONITOR SR. PT HAS HUNT POUCH, PT ABLE TO EMPTY. IV ON R HAND 22 SL. SHOWS NO SIGNS OF INFILTRATION, NO REDNESS. SAFETY PRECAUTIONS IN PLACE. BED IN LOWEST POSITION, LOCKED, AND CALL LIGHT KEPT WITHIN REACH. WILL CONTINUE TO MONITOR. Addendum: 09/25/19 at 0218 by LEATHA SANCHEZ RN WRONG TIME
[2019-09-25] MEDS: ZOLPIDEM TARTRATE 5 MG TABLET PO PRN (01:55)
[2019-09-25] MEDS: HYDROCODONE/APAP 5/325MG 1 EACH TABLET PO PRN ×3 (03:23→20:21)
--- NOTE | 2019-09-25 03:23 | NUR ---
TELE/RN NOTES: COVERING FOR HARMONY ZHANG'S BREAK. PT IS COMPLAINING OF GENERALIZED PAIN ON HER NECK, BACK, FINGERS, BODY. BP:124/70 HR: 84. PT STABLE. ADMINISTERED 5/325 NORCO PO. TOLERATED WELL. WILL CONTINUE TO MONITOR.
[2019-09-25 04:31] VITALS: BP 129/71
--- NOTE | 2019-09-25 06:35 | NUR ---
AGILE JAVA DEVELOPER NOTES PATIENT IN BED, ASLEEP, ALERT AND ORIENTED X 3. BREATHING EVEN AND UNLABORED ON ROOM AIR. SHOWS NO SIGNS OF ACUTE RESPIRATORY DISTRESS. NO ACUTE PAIN. TELE MONITOR SR. PT HAS HUNT POUCH, PT ABLE TO EMPTY. IV ON R HAND 22 SL. SHOWS NO SIGNS OF INFILTRATION, NO REDNESS. ALL DUE MEDICATIONS GIVEN. SAFETY PRECAUTIONS IN PLACE. BED IN LOWEST POSITION, LOCKED, AND CALL LIGHT KEPT WITHIN REACH. WILL ENDORSE TO ONCOMING NURSE.
--- NOTE | 2019-09-25 07:47 | NUR ---
BEREAVEMENT COUNSELOR OPENING NOTES RECEIVED PATIENT IN BED, AWAKE, A/O X3. PATIENT BREATHING ON ROOM AIR; BREATHING IS EVEN AND UNLABORED; NO SOB PRESENT AT THIS TIME. MAKING HER NEEDS KNOWN. PATIENT REQUESTING PAIN MEDICATION FOR GENERALIZED PAIN. HAS A HUNT POUCH THAT SHE IS ABLE TO CARE FOR HERSELF. R HAND IV ACCESS G # 22 PRESENT AND INTACT. SAFETY PRECAUTIONS IN PLACE; BED IN LOW POSITION AND LOCKED; RAILS UP X2, CALL LIGHT WITHIN REACH. WILL CONTINUE TO MONITOR PATIENT.
[2019-09-25 07:52] LABS: BASOPHILS % (AUTO) 0.4 % (0.0-2.0); EOSINOPHILS % (AUTO) 0.7 % (0.0-6.0); HEMATOCRIT 41 % (33-45); HEMOGLOBIN 13.3 g/dL (11.5-14.8); LYMPHOCYTES # (AUTO) 1.7 /CMM (0.8-4.8); LYMPHOCYTES % (AUTO) 33.1 % (20.0-44.0); MEAN CORPUSCULAR HGB CONC 33 g/dl (31.0-36.0); MEAN CORPUSCULAR VOLUME 88 fL (82-100); MONOCYTES # (AUTO) 0.5 /CMM (0.1-1.30); MONOCYTES % (AUTO) 10.1 % (2.0-12.0); NEUTROPHILS # (AUTO) 2.9 /CMM (1.8-8.9); NEUTROPHILS % (AUTO) 55.7 % (43.0-81.0); PLATELET COUNT (AUTO) 186 /CMM (150-450); RED BLOOD CELL COUNT(AUTO) 4.58 MIL/uL (4.0-5.2); WHITE BLOOD COUNT (AUTO) 5.3 K/uL (4.3-11.0)
[2019-09-25 08:00] VITALS: BP 130/76
[2019-09-25 08:01] LABS: CALCIUM, SERUM 9.9 mg/dL (8.5-10.1); CREATININE 1.1 mg/dL (0.6-1.3); POTASSIUM 3.3 mmol/L (3.5-5.1)
[2019-09-25] MEDS: ATORVASTATIN 10 MG TABLET PO SCH (09:07)
[2019-09-25] MEDS: BACLOFEN (10 MG) 10 MG TABLET PO SCH ×4 (09:08→18:43)
[2019-09-25] MEDS: FENOFIBRATE NANOCRYS (145 MG) 145 MG TABLET PO SCH (09:08)
[2019-09-25] MEDS: HYDROCHLOROTHIAZIDE 25 MG TABLET PO SCH (09:10)
[2019-09-25] MEDS: DIAZEPAM 5 MG TABLET PO SCH ×4 (09:11→18:43)
[2019-09-25] MEDS: LEVOTHYROXINE SODIUM 50 MCG TABLET PO SCH (09:13)
[2019-09-25] MEDS ORDERED: POTASSIUM CHLORIDE 20 MEQ TAB.PRT.SR PO SCH (11:00)
[2019-09-25 16:00] VITALS: BP 123/93
--- NOTE | 2019-09-25 18:50 | NUR ---
MS RN CLOSING NOTES PATIENT IN BED, AWAKE, A/O X3. PATIENT BREATHING ON ROOM AIR; BREATHING IS EVEN AND UNLABORED; NO SOB PRESENT AT THIS TIME. VERY NEEDY AND REQUIRES A LOT OF ATTENTION; FORGETFUL AT TIMES. HUNT POUCH EMPTIED TODAY. RFA IV ACCESS G # 22 PRESENT AND INTACT. ALL NEEDS ATTENDED TO THROUGHOUT THE DAY. SAFETY PRECAUTIONS IN PLACE; BED IN LOW POSITION AND LOCKED; RAILS UP X2, CALL LIGHT WITHIN REACH. WILL ENDORSE TO TELEMETRY MONITOR NURSE.
--- NOTE | 2019-09-25 19:15 | NUR ---
RN medsurg notes Dr. Dumont at the bedside.
--- NOTE | 2019-09-25 19:20 | NUR ---
HARMONY vaughn opening notes Received Pt from morning nurse. Pt is sitting in bed comfortably. Pt is alert and orientedX3, calm, easily forgetful and able to make needs known. Respiration is normal in room air. No SOB. No S/S of distress noted. IV sites R hand# 22 is clean, intact, patent and SL. Pt is able to ambulate with a steady gait. Safety precautions is maintained. Bed at low position, brakes locked, side rails upX2 and call light is within reach. Will continue to monitor. Addendum: 09/26/19 at 0649 by LESLY MTZ RN R forearm #22
--- NOTE | 2019-09-25 19:40 | NUR ---
RN medsurg notes Informed and notified Dr. Dumont that Pt refused Desyrel 50 mg/2 tabs. MD ordered to D/C Desyrel 50 mg/2 tabs. Order carried out. Will continue to monitor.
[2019-09-25 20:00] VITALS: BP 126/65
[2019-09-25] MEDS ORDERED: SERTRALINE HCL 50 MG TABLET PO SCH (20:00)
[2019-09-25] MEDS ORDERED: clonazePAM 0.5 MG TABLET PO PRN (20:00)
--- NOTE | 2019-09-25 20:21 | NUR ---
RN medsurg notes Pt is complaining of generalized pain 8/10 on pain scale and requesting pain meds. Administered norco 5-325/1 tab/po as ordered for pain. VS is stable. Safety precautions is maintained. Will continue to monitor.
[2019-09-25 21:30] VITALS: BP 124/64
[2019-09-26] MEDS: HYDROCODONE/APAP 5/325MG 1 EACH TABLET PO PRN ×2 (03:46→13:19)
--- NOTE | 2019-09-26 03:46 | NUR ---
RN medsurg notes Pt is complaining of generalized pain 9/10 on pain scale and requesting pain meds. Administered norco5 /1 tab/po as ordered for pain. Safety precautions is maintained. BP 131/69. Pulse 78. Will continue to monitor.
--- NOTE | 2019-09-26 06:38 | NUR ---
[facility] medsur closing notes Pt is sleeping in bed comfortably. Pt is alert and orientedX3 and easily forgetful. Respiration is normal in room air. No SOB. No S/S of distress noted. VS is stable. Afebrile. Routine meds were given as ordered. IV sites R hand# 22 is clean, intact, patent and SL. Kept Pt clean, dry and comfortable. Emptied martinez pouch ileostomy 600 ml. All needs met and attended. Safety precautions is maintained. Bed at low position, brakes locked, side rails upX2 and call light is within reach. Will endorse to morning nurse for SULTANA. Addendum: 09/26/19 at 0651 by LESLY MTZ RN IV sites at R forearm#22
[2019-09-26 06:58] LABS: BASOPHILS % (AUTO) 0.5 % (0.0-2.0); EOSINOPHILS % (AUTO) 0.8 % (0.0-6.0); HEMATOCRIT 43 % (33-45); HEMOGLOBIN 14.1 g/dL (11.5-14.8); LYMPHOCYTES # (AUTO) 2.2 /CMM (0.8-4.8); LYMPHOCYTES % (AUTO) 35.5 % (20.0-44.0); MEAN CORPUSCULAR HGB CONC 33 g/dl (31.0-36.0); MEAN CORPUSCULAR VOLUME 87 fL (82-100); MONOCYTES # (AUTO) 0.6 /CMM (0.1-1.30); MONOCYTES % (AUTO) 9.5 % (2.0-12.0); NEUTROPHILS # (AUTO) 3.4 /CMM (1.8-8.9); NEUTROPHILS % (AUTO) 53.7 % (43.0-81.0); PLATELET COUNT (AUTO) 226 /CMM (150-450); RED BLOOD CELL COUNT(AUTO) 4.88 MIL/uL (4.0-5.2); WHITE BLOOD COUNT (AUTO) 6.2 K/uL (4.3-11.0)
[2019-09-26 07:22] LABS: CREATININE 1.1 mg/dL (0.6-1.3); POTASSIUM 3.6 mmol/L (3.5-5.1)
[2019-09-26] MEDS: LEVOTHYROXINE SODIUM 50 MCG TABLET PO SCH (07:38)
--- NOTE | 2019-09-26 07:52 | NUR ---
MS/RN OPENING NOTES RECEIVED PATIENT AWAKE ON BED. PATIENT IS ALERT AND ORIENTED X4. PATIENT DENIES PAIN AT THIS TIME. NO RESPIRATORY DISTRESS NOTED. BED LOW AND LOCKED SIDE RAILS UP X2. CALL LIGHT WITHIN REACH. WILL CONTINUE TO MONITOR.
[2019-09-26 08:00] VITALS: BP 121/70
[2019-09-26 09:00] VITALS: BP 121/70
[2019-09-26] MEDS: HYDROCHLOROTHIAZIDE 25 MG TABLET PO SCH (09:00)
[2019-09-26] MEDS: DIAZEPAM 5 MG TABLET PO SCH ×2 (09:00→13:00)
[2019-09-26] MEDS ORDERED: SERTRALINE HCL 50 MG TABLET PO SCH (09:00)
[2019-09-26] MEDS: ATORVASTATIN 10 MG TABLET PO SCH (09:01)
[2019-09-26] MEDS: FENOFIBRATE NANOCRYS (145 MG) 145 MG TABLET PO SCH (09:01)
[2019-09-26] MEDS: oxyCODONE/APAP (5/325 MG) 1 UDTAB TABLET PO PRN (09:02)
[2019-09-26] MEDS: BACLOFEN (10 MG) 10 MG TABLET PO SCH ×2 (09:03→13:00)
--- NOTE | 2019-09-26 10:39 | NUR ---
SW NOTE: Computer Programmer Analyst consulted with Biologist, Deb regarding this case and the suggestion to proceed with inpatient GPS. Per Deb, the pt has a colostomy and is not an appropriate GPS referral at this time. Aforementioned information was endorsed to RN Micki BELTRAN, Dr. Evans, and Alex ARMAS. Computer Programmer Analyst(s) available for discharge planning and support as needed.
--- NOTE | 2019-09-26 11:46 | NUR ---
MS/RN NOTES PATIENT COMPLAINED OF NAUSEA, NO EMESIS NOTED, ONDANSETRON 4MG IV WAS GIVEN,WILL CONTINUE TO MONITOR.
--- NOTE | 2019-09-26 13:20 | NUR ---
MS/RN NOTES PATIENT COMPLAINED OF BODY PAIN RATE 7/10 NORCO 5/325MG PO WAS GIVEN WILL CONTINUE TO MONITOR.
--- NOTE | 2019-09-26 13:31 | NUR ---
SW CONSULT: Camp Manager reviewed chart and discussed case with Bass String Winder, Deb. Camp Manager conducted consult regarding pt's discharge plan and the possibility of placement upon discharge. Pt reported she lives alone in her home (house) in [place]. Pt reported an extensive history of Depression, "since the third grade." Pt reported she has tried "at least 30" different psychotropic medications to treat her depression and has a treating psychiatrist, "Dr. Herbert" in [place]. Pt reported she also has a therapist who she is in weekly phone contact with due to COVID-19 restrictions. Pt reported she was previously at [facility]/SNF, where she had a "traumatic" experience due to other patients' behavior(s). Pt reported she is completely reluctant to discharge to a SNF or any type of facility, however she expressed interest in [facility]. Camp Manager informed the pt that due to her medical limitations consistent with her colostomy, she is not appropriate for [facility]. Pt reported she was previously admitted to [facility] some time ago. Camp Manager followed up with Micki BELTRAN RN, who was unaware and reported that she would not be appropriate for [facility]. Camp Manager presented home health as an option to the pt given her determination to discharge back home; pt agreed. Camp Manager endorsed aforementioned information to Micki BELTRAN RN. Micki reported she would initiate a home health referral to the patient. Patient's nurse, Kika also updated with aforementioned information. Camp Manager offered additional mental health community services to the pt; pt declined. Camp Manager provided active listening and emotional support to the pt.
--- NOTE | 2019-09-26 13:40 | NUR ---
MS/RN NOTES PATIENT WANT TO TALK TO NURSE INFORMATICS EDUCATOR. NORBERTO NURSE INFORMATICS EDUCATOR IS AWARE.
[2019-09-26] MEDS ORDERED: ONDA4TAB5 PO (16:51)
[2019-09-26] MEDS ORDERED: ALLA266C2 TP (16:51)
[2019-09-26] MEDS ORDERED: OXYC-128 PO (16:51)
[2019-09-26] MEDS ORDERED: FENO145T21 PO (16:51)
[2019-09-26] MEDS ORDERED: MECL-159 PO (16:51)
[2019-09-26] MEDS ORDERED: ACET-868 PO (16:51)
[2019-09-26] MEDS ORDERED: MAGN400O6 PO (16:51)
[2019-09-26] MEDS ORDERED: ZOLP5TAB8 PO (16:51)
[2019-09-26] MEDS ORDERED: HYDR-4384 PO (16:51)
[2019-09-26] MEDS ORDERED: MAG30ORA PO (16:51)
[2019-09-26] MEDS ORDERED: CLON0.5T4 PO (16:51)
[2019-09-26] MEDS ORDERED: NAPH15DR47 EACHEYE (16:51)
[2019-09-26] MEDS ORDERED: SERT50TA PO (16:51)
--- NOTE | 2019-09-26 18:26 | NUR ---
MS/RN NOTES PATIENT IS ALERT ORIENTED X 4. PATIENT DENIES PAIN AT THIS TIME. IN ROOM AIR. RESPIRATION REGULAR AND UNLABORED. THE PATIENT IN NO APPARENT DISTRESS. SEEN AND EXAMINED BY MD WITH ORDERS MADE AND CARRIED OUT. PATIENT WAS GIVEN DISCHARGE INSTRUCTION AND VERBALIZED UNDERSTANDING. THE PATIENT LEFT THE UNIT IN STABLE CONDITION.
[2019-09-27] MEDS ORDERED: NYST5ORA PO (04:19)
== END 2019-09-26 15:50 | DRG 73 ==
LOC: ER 10:19 → TELE 13:14 → MED 09-25 09:56
PROVIDERS: ADMIT Family Medicine; ATTEND Internal Medicine
DX: G90.8 Other disorders of autonomic nervous system (principal); G93.41 Metabolic encephalopathy; F11.20 Opioid dependence, uncomplicated; I10 Essential (primary) hypertension; G89.4 Chronic pain syndrome; M79.7 Fibromyalgia; N31.9 Neuromuscular dysfunction of bladder, unspecified; R32 Unspecified urinary incontinence; E87.6 Hypokalemia; R53.1 Weakness; F41.9 Anxiety disorder, unspecified; F32.9 Major depressive disorder, single episode, unspecified; Z90.49 Acquired absence of other specified parts of digestive tract; Z93.2 Ileostomy status; Z88.2 Allergy status to sulfonamides
CPT/HCPCS: 36415; 70450-TC; 71045-TC; 80048-TC; 80061-TC; 81000-TC; 82550-TC; 82962-TC; 83735-TC; 84100-TC; 84484-TC; 85025-TC; 87081-TC; 87086-TC; 87186-TC; 93307-TC; 93880-TC; G0378; J2405; J7030

== ENCOUNTER 2019-09-26 16:39 | Inpatient (IN) | payer MEDICARE ==
[~2019-09-26] VITALS: Ht 152.4 cm; Wt 65.3 kg
[~2019-09-26 16:39] MED LIST changes: +ESTR1PAT25 TD; +HYDR25TA4 PO
[2019-09-26] MEDS ORDERED: HYDR-4384 PO (16:51)
[2019-09-26] MEDS ORDERED: SERT50TA PO (16:51)
[2019-09-26] MEDS ORDERED: FENO145T21 PO (16:51)
[2019-09-26] MEDS ORDERED: NAPH15DR47 EACHEYE (16:51)
[2019-09-26] MEDS ORDERED: OXYC-128 PO (16:51)
[2019-09-26] MEDS ORDERED: ZOLP5TAB8 PO (16:51)
[2019-09-26] MEDS ORDERED: ONDA4TAB5 PO (16:51)
[2019-09-26] MEDS ORDERED: MAG30ORA PO (16:51)
[2019-09-26] MEDS ORDERED: ACET-868 PO (16:51)
[2019-09-26] MEDS ORDERED: MECL-159 PO (16:51)
[2019-09-26] MEDS ORDERED: ALLA266C2 TP (16:51)
[2019-09-26] MEDS ORDERED: MAGN400O6 PO (16:51)
[2019-09-26] MEDS ORDERED: CLON0.5T4 PO (16:51)
[2019-09-26] MEDS ORDERED: MAGNESIUM HYDROXIDE 30 ML UDC PO PRN ×2 (17:00→22:00)
[2019-09-26] MEDS ORDERED: LORAZEPAM 0.5 MG TABLET PO PRN (17:00)
[2019-09-26] MEDS ORDERED: QUETIAPINE FUMARATE 25 MG TABLET PO PRN (17:00)
[2019-09-26] MEDS ORDERED: ACETAMINOPHEN 325 MG TABLET PO PRN ×2 (17:00→17:30)
[2019-09-26] MEDS ORDERED: MAG HYDROX/AL HYDROX/SIMETH 30 ML UDC PO PRN ×2 (17:00→17:30)
[2019-09-26] MEDS ORDERED: BLOOD SUGAR DIAGNOSTIC 1 EACH STRIP IN ONE (17:00)
[2019-09-26] MEDS ORDERED: TEMAZEPAM 7.5 MG CAPSULE PO PRN (17:00)
[2019-09-26] MEDS ORDERED: oxyCODONE/APAP (5/325 MG) 1 UDTAB TABLET PO PRN (17:30)
[2019-09-26] MEDS ORDERED: HYDROCODONE/APAP 5/325MG 1 EACH TABLET PO PRN (17:30)
[2019-09-26] MEDS ORDERED: Z GUARD REMEDY 2 OZ OINT TP PRN (17:30)
[2019-09-26] MEDS ORDERED: MECLIZINE HCL 25 MG TABLET PO PRN (17:30)
[2019-09-26] MEDS ORDERED: ONDANSETRON 4 MG TAB.RAPDIS PO PRN (18:30)
[2019-09-26] MEDS ORDERED: NAPHAZOLINE HCL/PHENIR MAL 15 ML BOTTLE EACHEYE PRN (18:30)
[2019-09-26 18:43] VITALS: BP 132/86
--- NOTE | 2019-09-26 19:41 | NUR ---
ADMISSION NURSING NOTE: PT WAS ADMITTED TODAY AT 1630 FROM [facility]. PT IS VOLUNTARY, COMPLAINING OF INCREASED ANXIETY AND HAVING FREQUENT PANIC ATTACKS. PT WAS BROUGHT ON THE UNIT VIA WHEELCHAIR WITH 1 STAFF. PT IS A&OX3, ANXIOUS, COOPERATIVE, PLEASANT, HYPERVERBAL, GUARDED, DENIES SI/HI/AVH AT THIS TIME. NO S/S OF ANY DISTRESS NOTED. NO C/O PAIN OR ANY DISCOMFORT. ADMISSION ORDERS WERE GIVEN BY DR. TORRES AND DR. RODRIGUEZ HAS BEEN NOTIFIED OF THE ADMISSION WELL. MED RECON HAS BEEN DONE. VS:132/86, 100, 18, 96%RA, 98.6, 0/10 PAIN. PT WAS COOPERATIVE WITH THE ADMISSION PROCESS AND HAS SIGNED ALL PAPERWORK. SKIN INTACT. PT HAS A HUNT POUCH ILEOSTOMY AND IS SELF CARE. WILL CONTINUE TO MONITOR Q15 MINS FOR SAFETY AND BEHAVIOR.
[2019-09-26] MEDS ORDERED: FENTANYL TD PATCH (25 MCG/HR) 25 MCG/HR PATCH.TD72 TD SCH (21:00)
[2019-09-26] MEDS: clonazePAM 0.5 MG TABLET PO SCH (22:01)
--- NOTE | 2019-09-26 22:02 | NUR ---
GPS RN NOTES FENTANYL TRANSDERMAL PATCH 25 MCG PLACED ON RUC.
--- NOTE | 2019-09-27 00:18 | NUR ---
GPS RN NOTES ADMINISTERED PERCOCET 5/325 MG PER PATIENT'S REQUEST. PATIENT STATED HER HANDS WERE HURTING, RATED PAIN A 9/10. WILL CONTINUE TO MONITOR
[2019-09-27] MEDS ORDERED: NYST5ORA PO (04:19)
[2019-09-27] MEDS ORDERED: LEVOTHYROXINE SODIUM 50 MCG TABLET PO SCH (07:30)
[2019-09-27 08:00] VITALS: BP 139/70
[2019-09-27 08:56] LABS: ALBUMIN 4.3 g/dL (3.4-5.0); BILIRUBIN,TOTAL 1.1 mg/dL (0.2-1.0); CALCIUM, SERUM 9.9 mg/dL (8.5-10.1); CREATININE 1.1 mg/dL (0.6-1.3); POTASSIUM 3.6 mmol/L (3.5-5.1); TOTAL PROTEIN, SERUM 8.6 g/dL (6.4-8.2)
[2019-09-27 08:58] LABS: CHOLESTEROL 146 mg/dL (<200); HDL CHOLESTEROL 77 mg/dL (40-60); LDL 58 mg/dL (0-99); TRIGLYCERIDES 86 mg/dL (30-150)
[2019-09-27 09:00] VITALS: BP 139/70
[2019-09-27] MEDS ORDERED: SERTRALINE HCL 50 MG TABLET PO SCH (09:00)
[2019-09-27] MEDS ORDERED: BACLOFEN (10 MG) 10 MG TABLET PO SCH (09:00)
[2019-09-27] MEDS ORDERED: FENOFIBRATE NANOCRYS (145 MG) 145 MG TABLET PO SCH (09:00)
[2019-09-27] MEDS: HYDROCHLOROTHIAZIDE 25 MG TABLET PO SCH ×2 (09:00→09:18)
[2019-09-27] MEDS ORDERED: ATORVASTATIN 10 MG TABLET PO SCH (09:00)
[2019-09-27] MEDS: clonazePAM 0.5 MG TABLET PO SCH (09:17)
--- NOTE | 2019-09-27 10:17 | NUR ---
Pt. came to the station and wanted to be discharged and said she is feeling better. Pt. denies suicidal and homicidal. Dr. Dumont was notified and ordered D/C AMA. Residential Treatment Staff Dr. Evans made aware. Belongings ready and dicahrged papers ready. Addendum: 09/27/19 at 1117 by MALACHI VILLALOBOS RN Pt. to follow up with the psychiatrist Dr. Laci Lamb at [address] [address] with the tel# of [phone] and to follow up with the case management manager Dr. Brent Shah at [address], [place]. with the tel# of [phone].
--- NOTE | 2019-09-27 11:45 | NUR ---
Initial Discharge Plan: Pt currently resides at her home alone located at [address] [place] [address]; ([phone]). Per pt, she would like to return to her home today against medical advice. SW will work with the pt and the MD regarding appropriate discharge planning. SW will form a safe and proper discharge.
--- NOTE | 2019-09-27 11:46 | NUR ---
Discharge Note: Pt was discharged to her home located at [address] [place] [address]; ([phone]). Pt was discharged against medical advice (AMA) at 11am as the patient was a voluntary patient and decided that she wanted to be discharged. Pt was picked up by her brother, Young ([phone]). Pt was alert and oriented x4. Pt appeared to be in a depressed mood and presented with a calm affect. Pt denied both suicidal and homicidal ideation as well as auditory and visual hallucinations. Pt will be under the care of her nurse private duty, Dr. Laci Lamb, located at [address] [address]; and will be under the care of her psychiatrist, Dr. Brent Shah, located at [address] [place] [id number]; .
--- NOTE | 2019-09-27 12:15 | NUR ---
Pt. left the unit with belongings and wheeled by staff to the lobby. left without distress and on stable condition. Pt. being picked up the brother Young Hawley. V/S taken: BP 125/ 88, FL 96, RR 18, temp 98.0 and oxygen sat 97%.
== END 2019-09-27 12:15 | disposition left against medical advice (07) | DRG 881 ==
LOC: GPS 16:39
PROVIDERS: ADMIT Psychiatry & Neurology Psychiatry; ATTEND Internal Medicine
DX: F32.9 Major depressive disorder, single episode, unspecified (principal); Z93.2 Ileostomy status; F41.9 Anxiety disorder, unspecified; I10 Essential (primary) hypertension; M79.7 Fibromyalgia; G89.4 Chronic pain syndrome; N31.9 Neuromuscular dysfunction of bladder, unspecified; R53.1 Weakness; R32 Unspecified urinary incontinence; R55 Syncope and collapse; R56.9 Unspecified convulsions; Z88.2 Allergy status to sulfonamides
CPT/HCPCS: 36415; 80053-TC; 80061-TC; 82962-TC; 84443-TC

== ENCOUNTER 2019-10-11 13:00 | Outpatient (CLI) | payer MEDICARE ==
[~2019-10-11 13:00] MED LIST changes: +ACET-868 PO; +ALLA266C2 TP; +CLON0.5T4 PO; -CRAN200C5 PO; -ESTR1PAT25 TD; +FENO145T21 PO; -FENO160T PO; -FENTANYL TOP; +HYDR-4384 PO; +MAG30ORA PO; +MAGN400O6 PO; +MECL-159 PO; +NAPH15DR47 EACHEYE; +NYST5ORA PO; +ONDA4TAB5 PO; +OXYC-128 PO; -OXYC-133 PO; -RABE20TA18 PO; +SERT50TA PO; -TRAZ-257 PO; -TURM500C9 PO; +ZOLP5TAB8 PO; -[UNRECOGNIZED DRUG - OTHER] PO
[2019-10-11] MEDS ORDERED: ETHYL CHLORIDE SPRAY 1 EA BOTTLE TP ONE (14:30)
[2019-10-11] MEDS ORDERED: LIDOCAINE 2% 10 ML MDV IJ ONE (14:30)
[2019-10-11] MEDS ORDERED: BUPIVACAINE 0.5 % PF 150 MG/30 ML VIAL IJ ONE (14:30)
[2019-10-11] MEDS ORDERED: DEXAMETHASONE SOD PHOSPHATE 4 MG/ML VIAL IV ONE (15:00)
== END 2019-10-11 23:59 | disposition home or self-care (01) ==
LOC: WOU 13:00
PROVIDERS: ATTEND Podiatrist Foot & Ankle Surgery
DX: M19.071 Primary osteoarthritis, right ankle and foot (principal); M20.21 Hallux rigidus, right foot; R60.0 Localized edema; M79.674 Pain in right toe(s); Z79.899 Other long term (current) drug therapy
CPT/HCPCS: 20600; J1100; J3490 ×2

== ENCOUNTER 2019-11-22 14:05 | Outpatient (CLI) | payer MEDICARE ==
[2019-11-22] MEDS ORDERED: TRIAMCINOLONE ACETONIDE SUSP 40 MG/ML VIAL IM ONE (14:50)
[2019-11-22] MEDS ORDERED: BUPIVACAINE 0.5 % PF 150 MG/30 ML VIAL IJ ONE (14:53)
[2019-11-22] MEDS ORDERED: ETHYL CHLORIDE SPRAY 1 EA BOTTLE TP ONE (14:58)
== END 2019-11-22 23:59 | disposition home or self-care (01) ==
LOC: WOU 14:05
PROVIDERS: ATTEND Podiatrist Foot & Ankle Surgery
DX: M20.21 Hallux rigidus, right foot (principal); R60.0 Localized edema; M79.674 Pain in right toe(s)
CPT/HCPCS: 20600; J3301; J3490

== ENCOUNTER 2020-09-11 14:15 | Outpatient (CLI) | payer MEDICARE ==
[2020-09-11] MEDS ORDERED: BUPIVACAINE 0.5 % PF 150 MG/30 ML VIAL IJ ONE (15:30)
[2020-09-11] MEDS ORDERED: ETHYL CHLORIDE SPRAY 1 EA BOTTLE TP ONE (15:30)
[2020-09-11] MEDS ORDERED: DEXAMETHASONE SOD PHOSPHATE 4 MG/ML VIAL IJ ONE (16:00)
== END 2020-09-11 23:59 | disposition home or self-care (01) ==
LOC: WOU 14:15
PROVIDERS: ATTEND Podiatrist Foot & Ankle Surgery
DX: M05.771 Rheumatoid arthritis with rheumatoid factor of right ankle and foot without organ or systems involvement (principal); M72.2 Plantar fascial fibromatosis; R60.0 Localized edema; M20.21 Hallux rigidus, right foot; M25.571 Pain in right ankle and joints of right foot; M79.674 Pain in right toe(s)
CPT/HCPCS: 20600; 29540; J1100; J3490

== ENCOUNTER 2021-05-21 13:45 | Outpatient (CLI) | payer MEDICARE ==
[2021-05-21] MEDS ORDERED: BUPIVACAINE 0.5 % PF 150 MG/30 ML VIAL IJ ONE (15:00)
[2021-05-21] MEDS ORDERED: DEXAMETHASONE SOD PHOSPHATE 4 MG/ML VIAL IV ONE (15:00)
[2021-05-21] MEDS ORDERED: ETHYL CHLORIDE SPRAY 1 EA BOTTLE TP ONE (15:00)
== END 2021-05-21 23:59 | disposition home or self-care (01) ==
LOC: WOU 13:45
PROVIDERS: ATTEND Podiatrist Foot & Ankle Surgery
DX: M05.871 Other rheumatoid arthritis with rheumatoid factor of right ankle and foot (principal); R60.0 Localized edema; M79.671 Pain in right foot
CPT/HCPCS: 20600; J1100; J3490

== ENCOUNTER 2021-06-06 11:25 | Outpatient (CLI) | payer MEDICARE, BC ==
[2021-06-06] MEDS ORDERED: DEXAMETHASONE SOD PHOSPHATE 4 MG/ML VIAL IV ONE (11:26)
[2021-06-06] MEDS ORDERED: BUPIVACAINE 0.5 % PF 150 MG/30 ML VIAL IJ ONE (12:30)
[2021-06-06] MEDS ORDERED: ETHYL CHLORIDE SPRAY 1 EA BOTTLE TP ONE (12:30)
== END 2021-06-06 23:59 | disposition home or self-care (01) ==
LOC: WOU 11:25
PROVIDERS: ATTEND Podiatrist Foot & Ankle Surgery
DX: M05.871 Other rheumatoid arthritis with rheumatoid factor of right ankle and foot (principal); R60.0 Localized edema; M79.671 Pain in right foot
CPT/HCPCS: 20600; J1100; J3490

== ENCOUNTER 2021-11-12 14:30 | Outpatient (CLI) | payer MEDICARE, BC ==
[2021-11-12] MEDS ORDERED: ETHYL CHLORIDE SPRAY 1 EA BOTTLE TP ONE (14:31)
[2021-11-12] MEDS ORDERED: DEXAMETHASONE SOD PHOSPHATE 4 MG/ML VIAL IM ONE (14:31)
[2021-11-12] MEDS ORDERED: LIDOCAINE HCL/MPF 1% 30 ML VIAL IJ ONE (15:45)
== END 2021-11-12 23:59 | disposition home or self-care (01) ==
LOC: WOU 14:30
PROVIDERS: ATTEND Podiatrist Foot & Ankle Surgery
DX: M72.2 Plantar fascial fibromatosis (principal); M05.871 Other rheumatoid arthritis with rheumatoid factor of right ankle and foot; S90.30XA Contusion of unspecified foot, initial encounter; X58.XXXA Exposure to other specified factors, initial encounter; Y92.89 Other specified places as the place of occurrence of the external cause; R60.0 Localized edema; M79.671 Pain in right foot
CPT/HCPCS: 20600; J1100; J3490

== ENCOUNTER 2021-11-14 14:32 | Outpatient (CLI) | payer MEDICARE, BC | END 2021-11-14 23:59 | disposition home or self-care (01) | LOC: RAD 14:32 | PROVIDERS: ATTEND Podiatrist Foot & Ankle Surgery | DX: M19.071 Primary osteoarthritis, right ankle and foot (principal); M79.671 Pain in right foot | CPT/HCPCS: 73630-TC ==